=== PATIENT | male | born 1945 | race Caucasian/White ===

== ENCOUNTER 2024-09-16 12:12 | Inpatient (IN) | payer MEDICARE, OTHER, SELFPAY ==
[2024-09-16] VITALS (24 sets, daily range): BP systolic 111–163; BP diastolic 59–77; PULSE 69–98; RESP 16–20; TEMP 36.1–37.6; O2SAT 91–99; BMI 28.7; BMI 29.7
--- NOTE | 2024-09-16 | PATH_ITS ---
[facility] Accession Number: [id number] No. of containers..01 Tissue . 01 Material submitted: . colon - RIGHT COLON . 01 Diagnosis: COLON, RIGHT COLECTOMY: Invasive adenocarcinoma, moderately differentiated, involving the appendix. See case summary below. . CASE SUMMARY Standard: AJCC-UICC 9 . SPECIMEN Procedure: Right colectomy. . TUMOR Tumor site: Appendix, not otherwise specified. Base of appendix involvement is present. Histologic type: Adenocarcinoma. Histologic grade: G2, moderately differentiated. Tumor size: Greatest dimension: 7.8 cm. Tumor deposits: Present. Number of deposits: At least 3. Tumor extent: Tumor invades through muscularis propria and to subserosa and mesoappendix but does not extend to serosal surface. Lymphatic and/or vascular invasion: Not identified. Perineural invasion: Not identified. . MARGINS Margin status for invasive carcinoma: All margins negative for invasive carcinoma. Distance from invasive carcinoma to closest mesenteric margin: 0.6 cm. . REGIONAL LYMPH NODES Regional lymph node status Number of lymph nodes with tumor: 1. Number of lymph nodes examined: 15. . pTNM CLASSIFICATION (AJCC 9TH VERSION): pT3, pN1c . ADDITIONAL FINDINGS Appendicitis with serositis and perforation. . SPECIAL STUDIES IMMUNOHISTOCHEMISTRY TESTING FOR MISMATCH REPAIR PROTEINS: . MLH1: Intact nuclear expression. MSH2: Intact nuclear expression. MSH6: Intact nuclear expression. PMS2: Intact nuclear expression. Background nonneoplastic tissue/internal control with intact nuclear expression. . INTERPRETATION: No loss of nuclear expression of MMR proteins: low probability of microsatellite instability-high (MSI-H)* . * There are exceptions to the above IHC interpretations. These results should not be considered in isolation, and clinical correlation with genetic counseling is recommended to assess the need for germline testing. . * This test was developed and the performance characteristics were validated by [employer]. It has not been cleared or approved by the U.S. Food and Drug Administration. . COMMENTS Tumor is present at the appendix perforation as noted by microscopic examination. [facility] 09/27/2024 1030 Local . 01 Electronically signed: . Donald Edwards MD, Pathologist NPI- [id number] . 01 Gross description: . Received in formalin with two identifiers and right colon, is a portion of right colon with attached ileum (4.1 cm in length by 2.9 cm in diameter) with cecum and right colon (11.4 cm in length by 3.5 cm in diameter) with a dilated appendix with (6.2 cm in length and up to 2.7 cm in diameter), and a large defect transecting the appendix to reveal a grossly dilated, ragged lumen with no distinct mucoid material immediately identified. The distal portion of the appendix is attached by fat and soft tissue. The ileal margin is inked blue, the colon margin is inked black, the mesenteric margin is inked green, and the edges of the defect are inked orange. The serosa is buckley and slightly roughened with a large amount of adherent material consistent with exudate attached to the appendix. The lumen contains brown semi-solid fecal material. A portion of sessile ulcerated lesion (1.9 x 1.4 cm) is identified at the appendiceal orifice, extending approximately 0.8 cm into the cecum and is located at the orange-inked area of defect. The remaining appendiceal mucosa is diffusely ragged and friable, presumably a continuation of the aforementioned sessile lesion involving the entire appendix. The lesion extends 7.8 cm into the appendix leaving 1.6 cm at the distal tip that is grossly uninvolved. The maximum dimension of the tumor is 7.8 cm. The lesion extends through the wall and into the adjacent mesoappendix. No mucus is definitively identified. The lesion in the appendix has the mesenteric margin as the closest margin at 0.6 cm, and the remaining margins are widely free. The remaining mucosa is buckley and velvety with normal-appearing folds and no additional lesions identified. The aldana average 0.3 cm thick with no diveritcular identified. Palpation reveals 16 buckley lymmph node candidates ranging from 0.2 to 1.1 cm in greatest dimension. . Engagement Specialist sections are submitted as follows: A1: Engagement Specialist ileal and colon margins en face. A2-A3: Nearest green-inked mesenteric margin to mass. A4: Mass to normal cecum and orange-inked defect with two lymph node candidates. A5-A6: Additional lesion to orange-inked defect. A7: Section of appendix with mass and deepest extension. A8: Ileocecal valve. A9: Possible vascular invasiion. A10: Uninvolved colon. A11: Normal ileum. A12: One half of uninvolved bisected distal tip of appendix and uninvolved cross-section. A13: Section of fat adjacent to appendix with possible mat of lymph nodes. A14: Single intact lymph node candidate. A15: Single bisected lymph node candidate. A16: Single bisected lymph node candidate. A17: Five intact lymph node candidates. A18: Four intact lymph node candidates. A19: Two intact lymph node candidates. ([id number]) /CHASIDY 09/27/2024 0511 Local . 01 Microscopic: . A select panel of immunostains are performed to further evaluate the tumor. The tumor cells are focally positive for CDX2, positive for villin, and are negative for chromogranin. These findings support the diagnosis of adenocarcinoma and provide no evidence of neuroendocrine differentiation. An elastic stain is performed on block A4 to evaluate for possible vascular invasion, and none is identified. All controls stain as expected. . . * This test was developed and the performance characteristics were validated by [facility]. It has not been cleared or approved by the U.S. Food and Drug Administration. . 01 Pathologist provided ICD-10: C18.1 . 01 CPT . 058997, L99308, I77235, 147967 Specimen Comment: A courtesy copy of this report has been sent to [phone] Performed at: [address] [address], [place], [place] [id number] MD Donald Edwards MD Phone: [phone]
--- NOTE | 2024-09-16 13:23 | PC.NURSE ---
Patient here in department for nausea/vomiting that started 36 hours, patient has had one episode of bile emesis. Patient currently has 2/10 abdominal pain and is not currently nauseous, patient is currently drinking water
--- NOTE | 2024-09-16 14:08 | ED.NAVMDI ---
HPI - Nausea/Vomiting/Diarrhea General Chief complaint: Nausea/Vomiting/Diarrhea Stated complaint: abd px, vomiting green bile Time Seen by Provider: 09/16/24 13:01 Source: patient Mode of arrival: Ambulatory History of Present Illness HPI Narrative: 78-year-old male complains of central abdominal pain since 8:00 p.m. last night, nauseated this morning, no longer nauseated, last bowel movement yesterday, no black or red stools, no loose stools. No injury trauma new activities. He had concerns that he might heavy having appendicitis. He has had prior umbilical surgery many years ago, no other abdominopelvic surgeries. He has not sure if he is passing gas. 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 HEAD: Atraumatic. Normocephalic. EYES: Pupils equal round and reactive. Extraocular motions intact. No scleral icterus. No injection or drainage. ENT: Nose without bleeding, purulent drainage. Throat without erythema, tonsillar hypertrophy or exudate. Airway patent. NECK: Trachea midline. Non tender CARDIOVASCULAR: Regular rate and rhythm without murmurs, gallops, or rubs. RESPIRATORY: Clear to auscultation. Breath sounds equal bilaterally. No wheezes, rales, or rhonchi. GASTROINTESTINAL: Abdomen soft, non-tender, nondistended. No appreciable umbilical hernia, no tenderness periumbilical or otherwise on abdomen, nondistended, unremarkable bowel tones EXTREMITIES: No edema or joint tenderness. BACK: Nontender without deformity or crepitance. No flank tenderness. NEURO: AOx3. Motor functions grossly nonfocal SKIN: No rash or erythema of visible areas Initial Vital Signs Initial Vital Signs: Vital Signs Temperature 98.8 F 09/16/24 12:17 Pulse Rate 98 H 09/16/24 12:17 Respiratory Rate 20 09/16/24 12:17 Blood Pressure 140/67 09/16/24 12:17 Pulse Oximetry 94 09/16/24 12:17 Oxygen Delivery Method Room Air 09/16/24 12:17 Course Orders Ordered: ED Orders 09/16/24 12:48 Complete Blood Count AUTO DIFF Stat Comprehensive Metabolic Panel Stat Lipase Stat Prothrombin Time INR Stat 09/16/24 14:47 Ictotest Urine Stat Urine Culture Stat Urine Microscopic Stat 09/16/24 15:19 CT abdomen pelvis w con Stat 09/16/24 17:18 EKG-12 Lead Stat 09/16/24 17:29 Gram Stain Stat 09/16/24 18:00 Blood Culture Stat 09/16/24 18:22 Lactate (Lactic Acid) Stat Fentanyl (Fentanyl 100 Mcg/2 Ml Inj) 0 mcg IV Q5MIN PRN PRN Reason: Pain, Severe (7-10) Hydromorphone HCl (Hydromorphone 1 Mg Inj) 0 mg IV Q5MIN PRN PRN Reason: Pain, Mild (1-3) Hydroxyzine HCl (Hydroxyzine 50 Mg/Ml Inj) 25 mg IM NOW PRN PRN Reason: Pain, Mild (1-3) Lactated Ringer's (Lactated Ringers) 1,000 mls @ 42 mls/hr IV CONT JUDAH Last Admin: 09/16/24 19:03 Dose: 42 mls/hr Documented By: TRISTEN Acetaminophen (Ofirmev) 1,000 mg in 100 mls @ 400 mls/hr IV NOW ONE Stop: 09/16/24 20:29 Last Admin: 09/16/24 20:15 Dose: 400 mls/hr Documented By: MOIRA Cefazolin Sodium/Dextrose (Ancef) 100 mls @ 200 mls/hr IV NOW ONE Stop: 09/16/24 20:45 Last Admin: 09/16/24 19:44 Dose: 200 mls/hr Documented By: MOIRA Ondansetron HCl (Ondansetron 4 Mg/2 Ml Inj) 4 mg IV NOW PRN PRN Reason: Nausea And Vomiting Oxycodone HCl (Oxycodone Ir 5 Mg Tablet) 5 mg PO PACUNOW PRN PRN Reason: Mild or moderate pain Discontinued Medications Sodium Chloride (Normal Saline 0.9%) 1,000 mls @ 1,000 mls/hr IV BOLUS ONE Stop: 09/16/24 17:44 Last Infusion: 09/16/24 18:29 Dose: Infused Documented By: Admin: 09/16/24 17:21 Dose: 1,000 mls/hr Documented By: BRITTANIE Piperacillin Sod/Tazobactam (Sod 4.5 gm/ Sodium Chloride) 100 mls @ 200 mls/hr IV NOW ONE Stop: 09/16/24 16:46 Last Infusion: 09/16/24 18:59 Dose: Infused Documented By: Infusion: 09/16/24 18:29 Dose: 0 mls/hr Documented By: Admin: 09/16/24 18:18 Dose: 200 mls/hr Documented By: YUSRA Vital Signs Vital signs: Vital Signs - 8 hr 09/16/24 13:05 09/16/24 13:30 09/16/24 13:30 Pulse Rate 87 85 Blood Pressure 148/65 H Pulse Oximetry 94 92 Oxygen Delivery Method 09/16/24 14:00 09/16/24 14:00 09/16/24 14:30 Pulse Rate 86 81 Blood Pressure 143/77 H Pulse Oximetry 93 94 Oxygen Delivery Method Room Air 09/16/24 14:30 09/16/24 15:00 09/16/24 15:00 Pulse Rate 83 Blood Pressure 162/76 H 144/64 H Pulse Oximetry 93 Oxygen Delivery Method 09/16/24 15:30 09/16/24 15:30 09/16/24 16:00 Pulse Rate 86 84 Blood Pressure 146/69 H Pulse Oximetry 97 96 Oxygen Delivery Method Room Air 09/16/24 16:00 09/16/24 16:27 09/16/24 16:27 Pulse Rate 76 Blood Pressure 163/77 H 144/70 H Pulse Oximetry Oxygen Delivery Method 09/16/24 16:30 09/16/24 16:30 09/16/24 17:00 Pulse Rate 83 84 Blood Pressure 152/73 H Pulse Oximetry Oxygen Delivery Method 09/16/24 17:00 09/16/24 17:30 09/16/24 18:00 Pulse Rate 81 83 Blood Pressure 147/66 H Pulse Oximetry 97 97 Oxygen Delivery Method MDM - Nausea/Vomiting/Diarrhea Lab Data Attestation: I reviewed the patient's lab results. Lab results narrative: White blood cell count 38020, hemoglobin 12.6, platelets 023897, sodium 126 with glucose 208, serum CO2 23, chloride 93, potassium 4.0, BUN 15 with creatinine 0.75. Liver functions normal, lipase normal. 09/16/24 12:48 09/16/24 12:48 Labs: Lab Results 09/16/24 09/16/24 Range/Units 12:48 14:47 WBC 20.7 H (4.5-11.0) X10^3/uL RBC 4.09 L (4.5-5.9) X10^6/uL Hgb 12.6 L (13.5-17.5) g/dL Hct 37.5 L (41-53) % MCV 91.6 (80-100) fL MCH 30.8 (26-34) PG MCHC 33.6 (30-36) % RDW 13.4 (11.6-14.8) % Plt Count 220 (150-400) X10^3/uL Neut % (Auto) 86.9 H (50-75) % Lymph % (Auto) 3.1 L (25-40) % [place] % (Auto) 9.8 (3-14) % Eos % (Auto) 0.0 L (2-4) % Baso % (Auto) 0.2 (0-2) % Neut # (Auto) 91226 H (1277-2218) /uL Lymph # (Auto) 700 L (1523-9516) /uL [place] # (Auto) 2000 H (0-900) /uL Eos # (Auto) 0 (0-450) /uL Baso # (Auto) 0 (0-100) /uL PT 14.0 H (9.4-12.5) SECONDS INR 1.2 (0.9-1.3) Sodium 126 L (137-145) mmol/L Potassium 4.0 (3.4-5.1) mmol/L Chloride 93 L (98-107) mmol/L Carbon Dioxide 23 (22-32) mmol/L BUN 15 (9-20) mg/dL Creatinine 0.75 (0.66-1.25) mg/dL Estimated GFR > 60 (>60) mL/min BUN/Creatinine Ratio 20.0 (6-22) Glucose 208 H (80-110) mg/dL Calcium 9.2 (8.4-10.2) mg/dL Total Bilirubin 1.2 (0.2-1.3) mg/dL AST 37 (17-59) IU/L ALT 24 (<50) IU/L Alkaline Phosphatase 88 (38-126) U/L Total Protein 7.0 (6.3-8.2) g/dL Albumin 4.3 (3.5-5.0) g/dL Globulin 2.7 (1.7-4.1) g/dL Albumin/Globulin Ratio 1.6 (1.0-2.8) Lipase < 10 L (23-300) U/L Ur Bilirubin Confirm Negative (Negative) Urine RBC 0-1/hpf (0-5/HPF) Urine WBC 5-10/hpf H (0-5/HPF) Ur Squamous Epith Cells 0-1 /hpf (0-5/HPF) Urine Bacteria Moderate (10-30) H (None) Urine Mucus 3+ H (Negative) Vol Urine Centrifuged 10ml (spun) Urine Dip Bedside Urine Glucose Negative Bedside Urine Bilirubin + 1 Bedside Urine Ketone +/- 5 Urine Specific [place] 1.025 Bedside Urine Occult Blood ++ Bedside Urine pH 6.0 Bedside Urine Protein +++ 300 Bedside Urine Urobilinogen +/- 1mg Bedside Urine Nitrite - Negative Bedside Urine Leukocytes + [address] scan - abdomen/pelvis: Radiologist's Impression: [address] [address] [address] Scan Report Signed Patient: Evan Plummer MR#: [id number] : 1945 Acct:[id number] Age/Sex: 78 / M Date of Service: 09/16/24 Loc: ED Accession Number: [id number] Procedure: CT abdomen pelvis w con Ordering Provider: Yobany Bradley MD PROCEDURE: CT ABDOMEN PELVIS W CON INDICATIONS: Abdominal pain TECHNIQUE: After the administration of intravenous contrast, axial sections acquired from the lung bases to the pubic symphysis. Coronal and sagittal reformats were performed. For radiation dose reduction, the following was used: automated exposure control, adjustment of mA and/or kV according to patient size. COMPARISON: None. FINDINGS: Image quality: Diagnostic. Lower Chest: No significant findings. ABDOMEN: Liver: No solid mass. Gallbladder: No radiopaque gallstones or wall thickening. Biliary ducts: No biliary dilation. Pancreas: No ductal dilation. Spleen: Size is within normal limits. Adrenal Glands: No adrenal nodules. Kidneys and Ureters: No hydronephrosis. No solid mass. No complex renal cystic lesion which requires follow up. Stomach and Bowel: Suspect bowel perforation in the right lower quadrant. Inflammatory change in the surrounding fat and in the surrounding loops of bowel. Probable ileus pattern. Peritoneum: There is a focal perforation in the right lower quadrant with early abscess formation, possibly involving feculent material. There is minimal air present in the subjacent mesenteric fat. The area of likely perforation with feculent abscess formation measures 4.2 x 3.6 cm on coronal image 47 of series 3. On axial image 107 of series 2 it measures 2.4 x 2.8 cm. There is inflammatory change in the adjacent fat. There is inflammatory change in the adjacent bowel. Small free pelvic fluid collection. Ventral Wall: No significant ventral hernia. Abdominal Nodes: No retroperitoneal or mesenteric adenopathy by size criteria. Vessels: Aorta and inferior vena cava are normal in size. PELVIS: Pelvic Organs: Unremarkable. Bladder: No bladder wall thickening, accounting for underdistention. Pelvic Nodes: No enlarged lymph nodes. Miscellaneous: No inguinal hernias are seen. Bones: No aggressive osseous abnormality. IMPRESSION: Likely bowel perforation in the right lower quadrant with possible early abscess formation containing feculent material and minimal free air in the adjacent mesenteric fat. There is inflammatory change in the subjacent bowel and a probable ileus pattern. There is also a small amount of free pelvic fluid. Comment: Findings were discussed with Dr. Bradley on 09/16/2024 at 1644 hours Dictated by: Jc Juan M.D. on 09/16/2024 at 16:35 Approved by: Jc Juan M.D. on 09/16/2024 at 16:46 ECG Data Attestation: I personally reviewed and interpreted this ECG as follows: Interpretation: Normal sinus rhythm with rate 84, no obvious ST segment elevation or depression changes. AK 188, QRS 90, QTC 415. MDM Narrative Medical decision making narrative: 78-year-old male with periumbilical abdominal pain since 8:00 p.m. last night, patient concerned about possible appendicitis, prior umbilical hernia repair. Afebrile, sirs screen negative. No significant tenderness on abdominal exam. DDx consider colitis, diverticulitis, pancreatitis, gastritis, choledocholithiasis, hernia, bowel obstruction, aortic aneurysm/dissection, atypical for appendicitis, UTI, other. Labs pending. Patient declines pain medication when offered. White blood cell count 90935, hemoglobin adequate, lactate added. Urinalysis pending. GFR favorable, CT abdomen and pelvis ordered. CT abdomen and pelvis with IV contrast. Impressions: ?Likely bowel perforation in the right lower quadrant with possible early abscess formation containing feculent material and minimal free air in the adjacent mesenteric fat. There is inflammatory change in the sub adjacent bowel and a probable ileus pattern. There is also a small amount of free pelvic fluid.? See tele radiology report. In text portion peritoneal abdominal there is mention of the perforation feculent abscess formation measuring 4.2 x 3.6 cm. Results discussed with patient, we will start antibiotics, we will consult surgery. IV Zosyn antibiotic initiated, NKDA noted. Keep NPO. Urinalysis has imported, suspicious for infection, urine culture requested per protocol, could be inflammatory changes from adjacent inflammatory process, should be covered by IV Zosyn. 1750, surgery Dr. Feldman in the room consulting with patient and family. IV Zosyn has been given. Keep NPO. Dr Feldman taking patient to OR, admit to his service Critical Care Time Critical Care Time Critical Care Time: Yes Total Critical Care Time: 35 Attestation: The high probability of a clinically significant, sudden or life threatening deterioration of the [abdominal pelvic, GI] system(s) required my full and direct attention, intervention and personal management. The aggregate critical care time was [35] minutes. This time is in addition to time spent performing reported procedures but includes the following: [x] Data Review and interpretation [x] Patient assessment and monitoring of vital signs [x] Documentation [x] Medication orders and management Discharge Plan Departure Patient Disposition: Admitted to Surgery Clinical Impression: Abdominal pain, Abdominal abscess, Perforated abdominal viscus Admit Date/Time: 09/16/24 18:11 Admit Provider: Jason Feldman
[2024-09-16 14:12] LABS: Add Manual Diff / Slide Review NO; Basophils Absolute Auto 0 /uL (0-100); Basophils Percent Auto 0.2 % (0-2); Eosinophils Absolute Auto 0 /uL (0-450); Hematocrit 37.5 % (41-53); Hemoglobin 12.6 g/dL (13.5-17.5); Lymphocytes Absolute Auto 700 /uL (1100-4500); Lymphocytes Percent Auto 3.1 % (25-40); Mean Corpuscular HGB Conc 33.6 % (30-36); Mean Corpuscular Hemoglobin 30.8 PG (26-34); Mean Corpuscular Volume 91.6 fL (80-100); Monocytes Absolute Auto 2000 /uL (0-900); Monocytes Percent Auto 9.8 % (3-14); Neutrophils Absolute Auto 18000 /uL (1500-7000); Neutrophils Percent Auto 86.9 % (50-75); Platelet Count 220 X10^3/uL (150-400); Red Blood Cell Count 4.09 X10^6/uL (4.5-5.9); Red Cell Distribution Width 13.4 % (11.6-14.8); White Blood Cell Count 20.7 X10^3/uL (4.5-11.0)
[2024-09-16 14:18] LABS: Alanine Aminotransferase 24 IU/L (<50); Albumin 4.3 g/dL (3.5-5.0); Albumin Globulin Ratio 1.6 (1.0-2.8); Alkaline Phosphatase 88 U/L (38-126); Aspartate Aminotransferase 37 IU/L (17-59); Bilirubin Total 1.2 mg/dL (0.2-1.3); Blood Urea Nitrogen 15 mg/dL (9-20); Calcium 9.2 mg/dL (8.4-10.2); Carbon Dioxide 23 mmol/L (22-32); Chloride 93 mmol/L (98-107); Estimated Glomerular Filt Rate > 60 mL/min (>60); Globulin 2.7 g/dL (1.7-4.1); Glucose 208 mg/dL (80-110); HEMOLYSIS < 15 (0-50); Lipase < 10 U/L (23-300); Sodium 126 mmol/L (137-145)
[2024-09-16 14:51] LABS: Ictotest Urine Negative (Negative)
--- NOTE | 2024-09-16 15:19 | DI.CT.S_ITS ---
PROCEDURE: CT ABDOMEN PELVIS W CON INDICATIONS: Abdominal pain TECHNIQUE: After the administration of intravenous contrast, axial sections acquired from the lung bases to the pubic symphysis. Coronal and sagittal reformats were performed. For radiation dose reduction, the following was used: automated exposure control, adjustment of mA and/or kV according to patient size. COMPARISON: None. FINDINGS: Image quality: Diagnostic. Lower Chest: No significant findings. ABDOMEN: Liver: No solid mass. Gallbladder: No radiopaque gallstones or wall thickening. Biliary ducts: No biliary dilation. Pancreas: No ductal dilation. Spleen: Size is within normal limits. Adrenal Glands: No adrenal nodules. Kidneys and Ureters: No hydronephrosis. No solid mass. No complex renal cystic lesion which requires follow up. Stomach and Bowel: Suspect bowel perforation in the right lower quadrant. Inflammatory change in the surrounding fat and in the surrounding loops of bowel. Probable ileus pattern. Peritoneum: There is a focal perforation in the right lower quadrant with early abscess formation, possibly involving feculent material. There is minimal air present in the subjacent mesenteric fat. The area of likely perforation with feculent abscess formation measures 4.2 x 3.6 cm on coronal image 47 of series 3. On axial image 107 of series 2 it measures 2.4 x 2.8 cm. There is inflammatory change in the adjacent fat. There is inflammatory change in the adjacent bowel. Small free pelvic fluid collection. Ventral Wall: No significant ventral hernia. Abdominal Nodes: No retroperitoneal or mesenteric adenopathy by size criteria. Vessels: Aorta and inferior vena cava are normal in size. PELVIS: Pelvic Organs: Unremarkable. Bladder: No bladder wall thickening, accounting for underdistention. Pelvic Nodes: No enlarged lymph nodes. Miscellaneous: No inguinal hernias are seen. Bones: No aggressive osseous abnormality. IMPRESSION: Likely bowel perforation in the right lower quadrant with possible early abscess formation containing feculent material and minimal free air in the adjacent mesenteric fat. There is inflammatory change in the subjacent bowel and a probable ileus pattern. There is also a small amount of free pelvic fluid. Comment: Findings were discussed with Dr. Bradley on 09/16/2024 at 1644 hours Dictated by: Jc Juan M.D. on 09/16/2024 at 16:35 Approved by: Jc Juan M.D. on 09/16/2024 at 16:46
[2024-09-16 15:42] LABS: Bacteria Urine Moderate (10-30); Mucus Urine 3+ (Negative); RBC Urine 0-1/HPF (0-5/HPF); Squamous Epithelial Cell Urine 0-1 /HPF (0-5/HPF); Urine Volume 10mL (spun); WBC Urine 5-10/HPF (0-5/HPF)
--- NOTE | 2024-09-16 17:14 | EKG_ITS ---
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
--- NOTE | 2024-09-16 17:16 | EKG_ITS ---
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
[2024-09-16] MEDS: SODIUM CHLORIDE 0.9% 1,000 ML 1000 ML IV (17:21)
[2024-09-16 18:18] LABS: INR 1.2 (0.9-1.3)
[2024-09-16] MEDS: PIPERACILLIN/TAZO 4.5 GM in SODIUM CHLORIDE 0.9% 100 ML IV (18:18)
--- NOTE | 2024-09-16 18:18 | P.HP_ITS ---
History of Present Illness History of Present Illness Date Patient Seen: 09/16/24 Time Patient Seen: 18:19 Chief complaint: abd px, vomiting green bile Narrative: Evan Plummer is a 78-year-old man with history of hypertension who presents to the emergency department at [facility] with acute onset of abdominal pain. Pain began 36 hours ago primarily central and right lower quadrant. He has associated nausea and emesis. Previous abdominal surgery includes umbilical hernia repair. On arrival WBC 21 with left shift sodium 126 chloride [address] abdomen pelvis personally reviewed demonstrates an abscess in the right lower quadrant with phlegmon and perforated hollow viscus. No mention of appendix on CT read and I can not personally identify at either. He has had a colonoscopy in the past which has been normal sometime within the last several years. [facility] Medical History (Updated 09/16/24 @ 18:29 by Jason Feldman MD) HTN (hypertension) Surgical History (Updated 09/16/24 @ 18:25 by Jason Feldman MD) H/O umbilical hernia repair Social History (Updated 09/16/24 @ 18:25 by Jason Feldman MD) Smoking Status: Former smoker additional social history: [employer]/first [employer] Meds Home Medications and Allergies Allergies Allergy/AdvReac Type Severity Reaction Status Date / Time No Known Drug Allergies Allergy Verified 09/16/24 16:03 Exam Vital Signs (past 8 hours): - 09/16/24 12:17 09/16/24 13:05 09/16/24 13:30 Temperature 98.8 F Pulse Rate 98 H 87 85 Respiratory Rate 20 Blood Pressure 140/67 Pulse Oximetry 94 94 92 Oxygen Delivery Method Room Air 09/16/24 13:30 09/16/24 14:00 09/16/24 14:00 Temperature Pulse Rate 86 Respiratory Rate Blood Pressure 148/65 H 143/77 H Pulse Oximetry 93 Oxygen Delivery Method Room Air 09/16/24 14:30 09/16/24 14:30 09/16/24 15:00 Temperature Pulse Rate 81 Respiratory Rate Blood Pressure 162/76 H 144/64 H Pulse Oximetry 94 Oxygen Delivery Method 09/16/24 15:00 09/16/24 15:30 09/16/24 15:30 Temperature Pulse Rate 83 86 Respiratory Rate Blood Pressure 146/69 H Pulse Oximetry 93 97 Oxygen Delivery Method 09/16/24 16:00 09/16/24 16:00 09/16/24 16:27 Temperature Pulse Rate 84 76 Respiratory Rate Blood Pressure 163/77 H Pulse Oximetry 96 Oxygen Delivery Method Room Air 09/16/24 16:27 09/16/24 16:30 09/16/24 16:30 Temperature Pulse Rate 83 Respiratory Rate Blood Pressure 144/70 H 152/73 H Pulse Oximetry Oxygen Delivery Method 09/16/24 17:00 09/16/24 17:00 09/16/24 17:30 Temperature Pulse Rate 84 81 Respiratory Rate Blood Pressure 147/66 H Pulse Oximetry 97 Oxygen Delivery Method Oxygen Delivery Method Room Air Narrative Exam Narrative: General adult man alert oriented Chest nonlabored respiration Abdomen focal peritonitis right lower quadrant Extremities warm well perfused Objective Labs 09/16/24 12:48 09/16/24 12:48 Labs: Laboratory Results - last 24 hr 09/16/24 09/16/24 12:48 14:47 WBC 20.7 H RBC 4.09 L Hgb 12.6 L Hct 37.5 L MCV 91.6 MCH 30.8 MCHC 33.6 RDW 13.4 Plt Count 220 Neut % (Auto) 86.9 H Lymph % (Auto) 3.1 L [place] % (Auto) 9.8 Eos % (Auto) 0.0 L Baso % (Auto) 0.2 Neut # (Auto) 45877 H Lymph # (Auto) 700 L [place] # (Auto) 2000 H Eos # (Auto) 0 Baso # (Auto) 0 Sodium 126 L Potassium 4.0 Chloride 93 L Carbon Dioxide 23 BUN 15 Creatinine 0.75 Estimated GFR > 60 BUN/Creatinine Ratio 20.0 Glucose 208 H Calcium 9.2 Total Bilirubin 1.2 AST 37 ALT 24 Alkaline Phosphatase 88 Total Protein 7.0 Albumin 4.3 Globulin 2.7 Albumin/Globulin Ratio 1.6 Lipase < 10 L Ur Bilirubin Confirm Negative Urine RBC 0-1/hpf Urine WBC 5-10/hpf H Ur Squamous Epith Cells 0-1 /hpf Urine Bacteria Moderate (10-30) H Urine Mucus 3+ H Vol Urine Centrifuged 10ml (spun) Assessment & Plan Assessment and plan (1) Perforation bowel: Problem details: 78-year-old man who presents with a perforated bowel likely right colon. Unclear if appendicitis versus diverticular disease versus neoplasm versus ischemia. We discussed management options including management with antibiotic therapy percutaneous drainage, exploratory surgery. We discussed the risks and benefits of each and following discussion his preference is to proceed with surgery. Overview of an exploratory laparotomy, possible bowel resection was described. We discussed operative risks including hemorrhage, infection, anastomotic leak, damage to surrounding structures, chronic wound, and rare but serious events such as myocardial infarction, stroke and . Following discussion questions have been answered and he provides his informed consent to proceed. Status: Acute Time-Based Coding :: [TOTAL MINUTES] spent with patient and on the chart (including review of chart, obtaining history, exam, reviewing outside data, placing orders, documenting exam and treatment plan, and counseling patient) on [DATE].
[2024-09-16 18:42] LABS: Lactate (Lactic Acid) 1.8 mmol/L (0.7-2.1)
[2024-09-16] MEDS: LACTATED RINGERS 1,000 ML 42 ML IV (19:03)
[2024-09-16] MEDS: CEFAZOLIN 2 GM/100 ML PREMIX 100 ML IV (19:44)
--- NOTE | 2024-09-16 20:04 | SUR.OPER ---
Supine on padded OR bed, head on pillow, arms secured on padded arm boards at <90 degrees abduction, legs uncrossed, safety belt at thigh, tape over blanket over lower legs. 2 pillows under legs
[2024-09-16] MEDS: ACETAMINOPHEN IV 1,000 MG/100 ML VIAL 400 MG IV (20:15)
[2024-09-16] MEDS: BUPIVACAINE 0.25% (PF) VIAL 30 ML INJ (20:32)
[2024-09-16] MEDS: BUPIVACAINE LIPOSOME 266 MG/20 ML VIAL INJ (20:45)
--- NOTE | 2024-09-16 21:46 | PM.OP.1 ---
Operative Date/Time/Diagnoses Date of procedure: 09/16/24 Time of procedure: 21:46 Pre-op diagnosis: Perforated bowel Post-op diagnosis: other (Appendiceal mass, perforated bowel, purulent peritonitis) Procedure & Clinicians Procedure: Exploratory laparotomy Right hemicolectomy Same procedure as scheduled: Yes Indications: 78-year-old man presents to the emergency room with acute onset of abdominal pain. CT abdomen pelvis demonstrated a perforated bowel with an associated abscess in the right lower quadrant, appendix not visualized. We discussed options including antibiotic therapy plus or minus drainage versus surgery in his preference is to proceed with an operation. 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 No hepatic metastasis Specimen(s): other (Right colon) Estimated Blood Loss (mL): 50 Procedure in detail: Patient was brought to the operating room placed supine on the table. Bilateral lower extremity compression devices applied. General anesthesia induced he was intubated with an endotracheal tube. Cordoba catheter sterilely placed. He was then prepped and draped in sterile fashion and time-out was performed. He received 3.375 g of Zosyn prior to skin incision. Lower midline laparotomy was made in the abdomen was entered. We encountered purulent peritonitis throughout the abdomen. Self-retaining retractor was placed. 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 The liver was without signs of metastasis. The right colon was mobilized medially by incising along the white line of [place] to the level of the hepatic flexure. The sweep of the duodenal was identified and kept posterior out of harm's way. The right colon was then divided at the hepatic flexure after a window within the mesentery was made and then the bowel was divided using the MICHELLE stapler. The terminal ileum was divided in the similar fashion window within the mesentery was made in the small bowel was divided using the Endo-MICHELLE stapler. The attachments to the appendix and its associated abscess were divided/debrided. We divided the mesentery to the right colon using the LigaSure. A search for the right ureter was made but it was not identified secondary to the extensive inflammatory changes. We fashioned a [id number] functional end to end anastomosis between the terminal ileum and the transverse colon. A crotch stitch was placed and then a enterotomy and a colotomy were made in each limb which were then joined together using a 3rd firing of the MICHELLE stapler. The anastomosis was widely patent and hemostatic. The common opening was then closed in a running manner using 3-0 PDS. The suture line was imbricated using silk suture. The anastomosis was tested in content milk cross fit easily and there was no evidence of leak. The anastomosis was tension-free and well perfused. The abdomen was copiously lavaged with sterile saline and it returned clear. The bowel was returned to the abdomen and then the fascia was closed in a running fashion using PDS suture. Subcutaneous tissue was irrigated and then reapproximated using Vicryl suture and the skin closed with georgie. A total of 30 mL of 0.25% bupivacaine with 20 mL of Exparel were used for local anesthetic. A tap block by the anesthesia service was performed following completion of the operation. Sponge and instrument count was correct x2. Patient emerged from anesthesia and was transferred to recovery in stable condition. The patient's was updated as to his condition and the nature of the operation. Complications: none Post-operative Condition: stable Disposition: Acute Care
[2024-09-16 22:37] LABS: Acinetobacter calcoa-baumannii Not Detected (Not Detect); Bacteroides fragilis Not Detected (Not Detect); Candida albicans Not Detected (Not Detect); Candida auris Not Detected (Not Detect); Candida glabrata Not Detected (Not Detect); Candida krusei Not Detected (Not Detect); Candida parapsilosis Not Detected (Not Detect); Candida tropicalis Not Detected (Not Detect); Cryptococcus neoformans/gatti Not Detected (Not Detect); Enterobacter cloacae complex Not Detected (Not Detect); Enterobacterales Not Detected (Not Detect); Enterococcus faecalis Not Detected (Not Detect); Enterococcus faecium Not Detected (Not Detect); Haemophilus influenzae Not Detected (Not Detect); Klebsiella aerogenes Not Detected (Not Detect); Listeria monocytogenes Not Detected (Not Detect); Neisseria meningitidis Not Detected (Not Detect); Proteus species Not Detected (Not Detect); Pseudomonas aeruginosa Not Detected (Not Detect); Salmonella species Not Detected (Not Detect); Serratia marcescens Not Detected (Not Detect); Staphylococcus epidermidis Not Detected (Not Detect); Staphylococcus lugdunensis Not Detected (Not Detect); Staphylococcus species Not Detected (Not Detect); Stenotrophomonas maltophilia Not Detected (Not Detect); Streptococcus agalactiae (Gr B Not Detected (Not Detect); Streptococcus pneumonia Not Detected (Not Detect); Streptococcus pyogenes (Gr A) Not Detected (Not Detect); Streptococcus species Not Detected (Not Detect)
[2024-09-16] MEDS: SODIUM CHLORIDE 0.9% 1,000 ML 100 ML IV (22:37)
[2024-09-16] MEDS: PIPERACILLIN/TAZO 3.375 GM in SODIUM CHLORIDE 0.9% 100 ML IV (22:38)
[2024-09-17] VITALS (11 sets, daily range): BP systolic 102–143; BP diastolic 56–81; PULSE 71–81; RESP 16–18; TEMP 36.1–36.7; O2SAT 91–97
--- NOTE | 2024-09-17 01:01 | PC.ADMIT ---
[address] Admission Note: Patient back to AC unit from PACU at 22:15. Alert and oriented x 4, cooperative. Cordoba placed prior to AC admit, for surgical procedure. NS @ 100/hr, Zosyn per order. Oriented to room and call light, call light within reach. Spouse present at bedside. The patient,Evan Plummer,78 y/o, was given written information regarding hospital policies, unit procedures and contact persons. Patient's smoking status: Former smoker. Vital Signs - 8 hr 09/16/24 17:30 09/16/24 18:00 09/16/24 18:40 Temperature Pulse Rate 81 83 Respiratory Rate Blood Pressure Pulse Oximetry 97 97 Oxygen Delivery Method Room Air Oxygen Flow Rate 09/16/24 19:00 09/16/24 21:31 09/16/24 21:36 Temperature 99.1 F 99.6 F Pulse Rate 91 H 81 76 Respiratory Rate 20 16 20 Blood Pressure 154/76 H 111/60 111/60 Pulse Oximetry 97 97 99 Oxygen Delivery Method Room Air Simple Mask Simple Mask Oxygen Flow Rate 6 09/16/24 21:41 09/16/24 21:42 09/16/24 21:46 Temperature Pulse Rate 72 70 Respiratory Rate 19 16 Blood Pressure 112/61 118/61 Pulse Oximetry 99 91 93 Oxygen Delivery Method Simple Mask Room Air Room Air Oxygen Flow Rate 6 09/16/24 21:51 09/16/24 21:56 09/16/24 22:15 Temperature 97.1 F L Pulse Rate 72 73 70 Respiratory Rate 19 18 18 Blood Pressure 117/68 125/61 122/64 Pulse Oximetry 93 93 91 Oxygen Delivery Method Room Air Room Air Oxygen Flow Rate 0 09/16/24 22:45 09/16/24 23:15 Temperature 97.0 F L Pulse Rate 69 70 Respiratory Rate 18 18 Blood Pressure 116/59 L 116/61 Pulse Oximetry 93 92 Oxygen Delivery Method Oxygen Flow Rate 0 0
[2024-09-17] MEDS: PIPERACILLIN/TAZO 3.375 GM in SODIUM CHLORIDE 0.9% 100 ML IV ×3 (05:36→22:42)
[2024-09-17 06:00] LABS: Add Manual Diff / Slide Review NO; Basophils Absolute Auto 0 /uL (0-100); Basophils Percent Auto 0.1 % (0-2); Eosinophils Absolute Auto 0 /uL (0-450); Hematocrit 31.8 % (41-53); Lymphocytes Absolute Auto 500 /uL (1100-4500); Lymphocytes Percent Auto 3.6 % (25-40); Mean Corpuscular HGB Conc 34.6 % (30-36); Mean Corpuscular Hemoglobin 31.5 PG (26-34); Mean Corpuscular Volume 91.1 fL (80-100); Monocytes Absolute Auto 1000 /uL (0-900); Monocytes Percent Auto 6.7 % (3-14); Neutrophils Absolute Auto 13400 /uL (1500-7000); Neutrophils Percent Auto 89.6 % (50-75); Platelet Count 173 X10^3/uL (150-400); Red Blood Cell Count 3.49 X10^6/uL (4.5-5.9); White Blood Cell Count 14.9 X10^3/uL (4.5-11.0)
[2024-09-17 06:18] LABS: BUN Creatinine Ratio 21.6 (6-22); Blood Urea Nitrogen 16 mg/dL (9-20); Calcium 8.4 mg/dL (8.4-10.2); Carbon Dioxide 25 mmol/L (22-32); Chloride 96 mmol/L (98-107); Estimated Glomerular Filt Rate > 60 mL/min (>60); Glucose 171 mg/dL (80-110); HEMOLYSIS < 15 (0-50); Sodium 126 mmol/L (137-145)
[2024-09-17] MEDS: ENOXAPARIN 40 MG/0.4 ML SYRINGE SUBCUT (08:15)
[2024-09-17] MEDS: SODIUM CHLORIDE 0.9% 1,000 ML 100 ML IV ×2 (08:15→17:56)
--- NOTE | 2024-09-17 09:35 | PT.IIE ---
Current Diagnoses Perforation of intestine (nontraumatic) (09/16/24) Other specified symptoms and signs involving the digestive system and abdomen (09/16/24) Surgery Performed Operation Date: 09/16/24 19:00 Actual Procedures p Exploratory Laparotomy GEN Right Hemicolectomy Diagnosis of Appendecele Tumor - Jason Feldman MD Surgical History (Last Updated 09/16/24 @ 18:25 by Jason Feldman MD) H/O umbilical hernia repair Medical History (Last Updated 09/16/24 @ 18:25 by Jason Feldman MD) HTN (hypertension) Physical Therapy Inpatient Evaluation/Re-Eval M1 PT/OT-IP Prior Functional Status Start: 09/17/24 12:05 Freq: NEEDED Status: Active Protocol: Document 09/17/24 09:35 AB (Rec: 09/17/24 12:16 AB [id number]) Medical Review Prior Functional Status Medical History Reviewed Yes Communication able to make needs known Mobility and Gait pt stated that he was indpeendent with all mobilities and ambulation without AD but uses a SPC if walking on uneven surfaces due to L knee pain Social History Household Members spouse Living Arrangements House Number of Floors (Floors) One Floor Number of Stairs To Enter/Railing? no steps to enter Home Environment High Toilet,Walk in Shower Home Equipment Straight Cane M2 PT-IP Current Condition Start: 09/17/24 12:05 Freq: NEEDED Status: Active Protocol: Document 09/17/24 09:35 AB (Rec: 09/17/24 12:16 AB [id number]) Physical Therapy Current Condition Current Condition Evaluation Date 09/17/24 Treatment Diagnosis s/p R hemicolectomy; difficulty in walking Onset Date 09/16/24 M3 PT-IP Subjective Start: 09/17/24 12:05 Freq: NEEDED Status: Active Protocol: Document 09/17/24 09:35 AB (Rec: 09/17/24 12:16 AB [id number]) Subjective Physical Therapy Visit Type Type Initial Evaluation Visit Start Time 09:35 Visit Stop Time 10:11 Number of CORRECTION OFFICER HEAD Visits 0 Physical Therapy Visit Comments Patient Comments agreeable to do PT Therapy Pain Assessment Pain When Pain Assessed During Mobility Pain Present Pain Present Pain Reported Location Bilateral Lower Medial Abdomen Intensity 7 Scale Used Numeric (0 - 10) Pain Management Techniques Distraction,Modification of Treatment,Re-positioning, Timing of Activity with Medications M4 PT-IP Mobility and Gait Start: 09/17/24 12:05 Freq: NEEDED Status: Active Protocol: Document 09/17/24 09:35 AB (Rec: 09/17/24 12:16 AB [id number]) PT-Bed Mobility Assessment Rolling Type of Rolling Log Rolling Level of Assist Minimal Assistance Supine to Sit Supine to Sit Minimal Assistance,1 Person Assistance PT-Transfer Assessment Sit to and From Stand Sit to and from Stand Minimal Assistance,1 Person Assistance,Use of Upper Extremities Equipment Transfer Assistive Device Gait Belt,Front Wheeled Walker Orthotic/Prosthetic Devices or Brace: No Transfers Transfer Destination Chair Transfer Technique ambulated Transfer Ability Level of Assist Minimal Assistance,1 Person Assistance,Use of Upper Extremities Comments Mobility Comments pt supine in bed. spouse in room. obtained PLOF and home set up. post-op handout provided to pt. educated pt on abdominal precautions. BP: 137/70. pt completed log roll bed mobility min A and max cues. pt able to sit on EOB SBA. no c/o dizziness. BP: 141/75. pt completed sit to stand min A and cues and ambulated in room using FWW ~ 50 ft min A and cues. pt agreed to sit on the chair. positioned pt on the chair. call light and table placed within reach. Gait Assessment Gait Gait Assistance Required: Minimum Assistance Distance (Feet) 50 Able to Maintain Weight Bearing Status Yes During Gait Assistive Devices Assistive Device Gait Belt,Front Wheeled Walker Orthotic/Prosthetic Devices or Brace: No Gait Deviations General Gait Pattern Ataxic,Decreased Stride Length ,Decreased Feet Clearance Factors Limiting Gait Function Factors Limiting Gait Function Decreased Activity Tolerance, Decreased Strength,Limited Range of Motion,Pain,Poor Balance PT-Balance Assessment Sitting Balance and Reactions Static Sitting Balance Ability Normal Dynamic Sitting Balance Ability Good Standing Balance and Reactions Static Standing Balance Ability Fair Dynamic Standing Balance Ability Fair Device Used FWW M5 PT-IP Objective Assessments Start: 09/17/24 12:05 Freq: NEEDED Status: Active Protocol: Document 09/17/24 09:35 AB (Rec: 09/17/24 12:16 AB [id number]) Orientation Orientation/Cognition Level of Alertness Alert Orientation Name,Age,Birthday,Month,Date, Year,Day of Week,Place, Situation Safety Awareness Understands Safety Issues Memory Description No Deficits Noted Gross Range of Motion Lower Extremity ROM Assessment Within Functional Limits Strength Lower Extremity Strength Assessment Left Impaired Hip 4/5 Knee 4-/5 Coordination Assessment Gross Coordination Gross Coordination WNL Sensation Assessment Sensation Gross Sensation WNL Muscle Tone Muscle Tone WNL Yes M6 PT-IP Treatment Start: 09/17/24 12:05 Freq: NEEDED Status: Active Protocol: Document 09/17/24 09:35 AB (Rec: 09/17/24 12:16 AB [id number]) Physical Therapy Treatment Education Education Provided Precautions,Post-Op Packet, Safety M7 PT-IP Assessment and Plan Start: 09/17/24 12:05 Freq: NEEDED Status: Active Protocol: Document 09/17/24 09:35 AB (Rec: 09/17/24 12:16 AB [id number]) PT Summary Assessment and Plan Potential Rehabilitation Potential Fair Status of Condition at Evaluation Evolving Summary Impairments Pain,ROM,Strength,Balance, Coordination,Sensation,Tone, Cognition,Bed Mobility, Transfers,Gait,Activity Tolerance Assessment Summary pt is a 78 y/o M with c/o abdominal pain/appendiceal mass s/p R hemicolectomy POD 1 . pt requiring min A with ambulation using FWW. pt lives with spouse and spouse will be able to assist pt. pt stated that he can borrow a FWW. will continue to assess progress. Goals Bed Mobility Goal Independent Transfer Goal Independent,Front Wheeled Walker Gait Goal Independent,Front Wheel Walker Gait Distance 200 Other Goals improve ambulation using LRAD/ without AD 200 ft mod I Days to Meet Goals 10 Frequency of Treatment Frequency Of Treatment Once a Day Treatment Plan Physical Therapy Treatment Plan Bed Mobility Training,Transfer Training,Gait Training, Therapeutic Exercise,Balance Retraining,Post Op Education, Discharge Planning,Hot or Cold Pack,Neuromuscular Re-ed, Coordination Retraining,Manual Therapy Other Recommendations and Next Treatment log roll bed mobility, Focus ambulation Precautions Abdominal Surgery Precautions Log Roll,Lifting Restrictions, Gait Belt above Incisional Area Recommendations To Nursing Amount of Assist Needed 1 Person Assist Discharge Recommendations PT Discharge Recommendations Home with Assistance,Home Health Transportation Needs at Discharge Private Vehicle
[2024-09-17] MEDS: CELECOXIB 200 MG CAPSULE PO ×2 (10:27→20:31)
[2024-09-17] MEDS: lisinopriL 5 MG TABLET PO (10:27)
[2024-09-17] MEDS: SODIUM CHLORIDE 0.9% FLUSH 10 ML IV ×4 (10:28→20:32)
--- NOTE | 2024-09-17 10:36 | PM.PN.1 ---
Subjective Subjective Date Patient Seen: 09/17/24 Time Patient Seen: 10:36 Interval history: No complaints today. Exam Vital Signs (past 8 hours): - 09/17/24 05:00 09/17/24 07:00 09/17/24 10:27 Temperature 97.7 F Pulse Rate 81 81 Respiratory Rate 16 Blood Pressure 133/69 133/69 Pulse Oximetry 92 93 Oxygen Delivery Method Room Air Oxygen Flow Rate 0 Oxygen Delivery Method Room Air Oxygen Flow Rate 0 Narrative Exam Narrative: Abdomen is soft Dressing intact Cordoba draining clear yellow urine Objective Labs 09/17/24 04:54 09/17/24 04:54 Labs: Laboratory Results - last 24 hr 09/16/24 09/16/24 09/16/24 12:48 14:47 17:29 WBC 20.7 H RBC 4.09 L Hgb 12.6 L Hct 37.5 L MCV 91.6 MCH 30.8 MCHC 33.6 RDW 13.4 Plt Count 220 Neut % (Auto) 86.9 H Lymph % (Auto) 3.1 L [place] % (Auto) 9.8 Eos % (Auto) 0.0 L Baso % (Auto) 0.2 Neut # (Auto) 80974 H Lymph # (Auto) 700 L [place] # (Auto) 2000 H Eos # (Auto) 0 Baso # (Auto) 0 PT 14.0 H INR 1.2 Sodium 126 L Potassium 4.0 Chloride 93 L Carbon Dioxide 23 BUN 15 Creatinine 0.75 Estimated GFR > 60 BUN/Creatinine Ratio 20.0 Glucose 208 H Lactate Calcium 9.2 Total Bilirubin 1.2 AST 37 ALT 24 Alkaline Phosphatase 88 Total Protein 7.0 Albumin 4.3 Globulin 2.7 Albumin/Globulin Ratio 1.6 Lipase < 10 L Ur Bilirubin Confirm Negative Urine RBC 0-1/hpf Urine WBC 5-10/hpf H Ur Squamous Epith Cells 0-1 /hpf Urine Bacteria Moderate (10-30) H Urine Mucus 3+ H Vol Urine Centrifuged 10ml (spun) A.calcoaceticus-baumannii cmplx PCR Not detected Bacteroides fragilis Not detected Ann-Marie albicans (PCR) Not detected Ann-Marie auris (PCR) Not detected C. glabrata (PCR) Not detected C. krusei (PCR) Not detected C. parapsilosis (PCR) Not detected C. tropicalis (PCR) Not detected C. neoform/gattii (PCR) Not detected Enterobacterales (PCR) Not detected E. cloacae complex PCR Not detected Enterococc faecalis PCR Not detected Enterococc faecium PCR Not detected E. coli (PCR) Not detected H. influenzae (PCR) Not detected Klebsiella aerogenes (PCR) Not detected Klebsiella oxytoca PCR Not detected Klebsiella pneumoniae Not detected List. monocytogenes PCR Not detected N. meningitidis (PCR) Not detected Proteus species (PCR) Not detected Salmonella spp. (PCR) Not detected Serratia marcescens PCR Not detected Staphylococcus sp PCR Not detected Staph aureus (PCR) Not detected mecA/C & MREJ Resist Gene Not applicable mecA/C-Methicil Resis Gene Not applicable mcr-1 Col[place]in Res Gene PCR Not applicable Staph epidermidis (PCR) Not detected Staph lugdunensis PCR Not detected S. maltophilia (PCR) Not detected Streptococcus sp PCR Not detected Group A Strep (PCR) Not detected Strep agalactiae (PCR) Not detected Strep pneumoniae (PCR) Not detected P. aeruginosa (PCR) Not detected Erik/B-Vanco Res Genes Not applicable blaIMP Car res Gene PCR Not applicable KPC-Carbap Res Gene PCR Not applicable blaNDM Car Res Gene PCR Not applicable OXA-48 Carbapenem Resis Gene (PCR) Not applicable blaVIM Car Res Gene PCR Not applicable CTX-M Gene Resistance (PCR) Not applicable 09/16/24 09/17/24 18:22 04:54 WBC 14.9 H RBC 3.49 L Hgb 11.0 L Hct 31.8 L MCV 91.1 MCH 31.5 MCHC 34.6 RDW 13.0 Plt Count 173 Neut % (Auto) 89.6 H Lymph % (Auto) 3.6 L [place] % (Auto) 6.7 Eos % (Auto) 0.0 L Baso % (Auto) 0.1 Neut # (Auto) 27394 H Lymph # (Auto) 500 L [place] # (Auto) 1000 H Eos # (Auto) 0 Baso # (Auto) 0 PT INR Sodium 126 L Potassium 4.0 Chloride 96 L Carbon Dioxide 25 BUN 16 Creatinine 0.74 Estimated GFR > 60 BUN/Creatinine Ratio 21.6 Glucose 171 H Lactate 1.8 Calcium 8.4 Total Bilirubin AST ALT Alkaline Phosphatase Total Protein Albumin Globulin Albumin/Globulin Ratio Lipase Ur Bilirubin Confirm Urine RBC Urine WBC Ur Squamous Epith Cells Urine Bacteria Urine Mucus Vol Urine Centrifuged A.calcoaceticus-baumannii cmplx PCR Bacteroides fragilis Ann-Marie albicans (PCR) Ann-Marie auris (PCR) C. glabrata (PCR) C. krusei (PCR) C. parapsilosis (PCR) C. tropicalis (PCR) C. neoform/gattii (PCR) Enterobacterales (PCR) E. cloacae complex PCR Enterococc faecalis PCR Enterococc faecium PCR E. coli (PCR) H. influenzae (PCR) Klebsiella aerogenes (PCR) Klebsiella oxytoca PCR Klebsiella pneumoniae List. monocytogenes PCR N. meningitidis (PCR) Proteus species (PCR) Salmonella spp. (PCR) Serratia marcescens PCR Staphylococcus sp PCR Staph aureus (PCR) mecA/C & MREJ Resist Gene mecA/C-Methicil Resis Gene mcr-1 Colistin Res Gene PCR Staph epidermidis (PCR) Staph lugdunensis PCR S. maltophilia (PCR) Streptococcus sp PCR Group A Strep (PCR) Strep agalactiae (PCR) Strep pneumoniae (PCR) P. 

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
--- NOTE | 2024-09-17 17:09 | PC.NURSE ---
At start of shift patient said they talke lisinopril however it was not ordered so RN called public relations associate provider and was ok to continue home med Lisinopril 5mg daily and ok to give po meds and then continue with Liquid diet. New orders placed, pt agreeable. The pt has been up walking the halls a couple times today and denied pain.
[2024-09-17] MEDS: CALCIUM CARBONATE 500 MG TAB 1000 MG PO (22:53)
[2024-09-18] VITALS (9 sets, daily range): BP systolic 131–152; BP diastolic 70–85; PULSE 69–78; RESP 16–20; TEMP 35.9–36.9; O2SAT 94–100
[2024-09-18] MEDS: SODIUM CHLORIDE 0.9% 1,000 ML 100 ML IV (03:06)
[2024-09-18 05:31] LABS: Add Manual Diff / Slide Review NO; Basophils Absolute Auto 0 /uL (0-100); Basophils Percent Auto 0.2 % (0-2); Eosinophils Absolute Auto 0 /uL (0-450); Hematocrit 30.3 % (41-53); Hemoglobin 10.4 g/dL (13.5-17.5); Lymphocytes Absolute Auto 700 /uL (1100-4500); Lymphocytes Percent Auto 6.9 % (25-40); Mean Corpuscular HGB Conc 34.3 % (30-36); Mean Corpuscular Hemoglobin 31.5 PG (26-34); Mean Corpuscular Volume 91.9 fL (80-100); Monocytes Absolute Auto 1100 /uL (0-900); Monocytes Percent Auto 10.3 % (3-14); Neutrophils Absolute Auto 8800 /uL (1500-7000); Neutrophils Percent Auto 82.6 % (50-75); Platelet Count 189 X10^3/uL (150-400); White Blood Cell Count 10.7 X10^3/uL (4.5-11.0)
[2024-09-18] MEDS: PIPERACILLIN/TAZO 3.375 GM in SODIUM CHLORIDE 0.9% 100 ML IV (05:37)
[2024-09-18 05:54] LABS: Blood Urea Nitrogen 19 mg/dL (9-20); Calcium 8.5 mg/dL (8.4-10.2); Carbon Dioxide 24 mmol/L (22-32); Chloride 100 mmol/L (98-107); Estimated Glomerular Filt Rate > 60 mL/min (>60); Glucose 139 mg/dL (80-110); HEMOLYSIS < 15 (0-50); Potassium 3.7 mmol/L (3.4-5.1); Sodium 128 mmol/L (137-145)
--- NOTE | 2024-09-18 06:34 | PC.NURSE ---
photo mask pattern generator: Patient had x1 episode of stool incontinence overnight, patient reported bright red blood in his stool, flushed prior to RN visualizing. Denies pain, nausea, SOB. VSS. Notified MD Feldman, continuing to monitor.
[2024-09-18] MEDS: ENOXAPARIN 40 MG/0.4 ML SYRINGE SUBCUT (09:37)
[2024-09-18] MEDS: lisinopriL 5 MG TABLET PO (09:38)
[2024-09-18] MEDS: CELECOXIB 200 MG CAPSULE PO ×2 (09:38→20:00)
--- NOTE | 2024-09-18 10:13 | PM.PN.1 ---
Subjective Subjective Date Patient Seen: 09/18/24 Time Patient Seen: 10:13 Interval history: Had a bloody bowel movement overnight. Otherwise no problems. Walking in the hallways this morning. Exam Vital Signs (past 8 hours): - 09/18/24 05:00 09/18/24 05:00 09/18/24 08:00 Temperature 96.7 F L 97 F L Pulse Rate 71 73 Respiratory Rate 16 16 Blood Pressure 131/76 140/76 Pulse Oximetry 94 94 100 Oxygen Delivery Method Room Air Oxygen Flow Rate 0 0 09/18/24 09:38 Temperature Pulse Rate 74 Respiratory Rate Blood Pressure 140/70 Pulse Oximetry Oxygen Delivery Method Oxygen Flow Rate Oxygen Delivery Method Room Air Oxygen Flow Rate 0 Const General: No acute distress Resp Effort & Inspection: normal respiratory effort Objective Labs 09/18/24 05:11 09/18/24 05:11 Labs: Laboratory Results - last 24 hr 09/18/24 05:11 WBC 10.7 RBC 3.30 L Hgb 10.4 L Hct 30.3 L MCV 91.9 MCH 31.5 MCHC 34.3 RDW 13.0 Plt Count 189 Neut % (Auto) 82.6 H Lymph % (Auto) 6.9 L Door % (Auto) 10.3 Eos % (Auto) 0.0 L Baso % (Auto) 0.2 Neut # (Auto) 8800 H Lymph # (Auto) 700 L Door # (Auto) 1100 H Eos # (Auto) 0 Baso # (Auto) 0 Sodium 128 L Potassium 3.7 Chloride 100 Carbon Dioxide 24 BUN 19 Creatinine 0.73 Estimated GFR > 60 BUN/Creatinine Ratio 26.0 H Glucose 139 H Calcium 8.5 PFSH Medical History (Updated 09/16/24 @ 18:29 by Jason Feldman MD) HTN (hypertension) Surgical History (Updated 09/16/24 @ 18:25 by Jason Feldman MD) H/O umbilical hernia repair Social History (Updated 09/16/24 @ 18:25 by Jason Feldman MD) household members: spouse Smoking Status: Former smoker 

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
[2024-09-18] MEDS: SODIUM CHLORIDE 0.9% FLUSH 10 ML IV (20:00)
--- NOTE | 2024-09-18 22:47 | PC.NURSE ---
pt resting comfortably in bed. pod #2 of exploratory laparotomy. a&o x4. o2 sats 98% on room air. vss. lungs cta. abdomen distended & nontender. active bowel sounds x4 quadrants. ptstates he has been passing flatus. midline incision covered w/ aquacell dressing w/ bloody drainage at the top and bottom. denies pain. denies nausea. tolerating diet. standby assist & independent in room w/ fww. @ bedside and helps pt ambulate. scds not on due to pt being independent in the room. bed in lowest position, call light within reach.
[2024-09-19] VITALS (10 sets, daily range): BP systolic 150–157; BP diastolic 74–87; PULSE 68–71; RESP 16–18; TEMP 35.9–36.1; O2SAT 94–99
[2024-09-19 06:01] LABS: Add Manual Diff / Slide Review NO; Basophils Absolute Auto 0 /uL (0-100); Basophils Percent Auto 0.5 % (0-2); Eosinophils Absolute Auto 100 /uL (0-450); Eosinophils Percent Auto 2.5 % (2-4); Hemoglobin 10.4 g/dL (13.5-17.5); Lymphocytes Absolute Auto 1100 /uL (1100-4500); Lymphocytes Percent Auto 20.2 % (25-40); Mean Corpuscular HGB Conc 34.6 % (30-36); Mean Corpuscular Hemoglobin 31.5 PG (26-34); Mean Corpuscular Volume 91.1 fL (80-100); Monocytes Absolute Auto 800 /uL (0-900); Monocytes Percent Auto 15.8 % (3-14); Neutrophils Absolute Auto 3200 /uL (1500-7000); Platelet Count 213 X10^3/uL (150-400); Red Blood Cell Count 3.29 X10^6/uL (4.5-5.9); Red Cell Distribution Width 13.2 % (11.6-14.8); White Blood Cell Count 5.2 X10^3/uL (4.5-11.0)
[2024-09-19 06:16] LABS: BUN Creatinine Ratio 23.1 (6-22); Blood Urea Nitrogen 15 mg/dL (9-20); Calcium 8.4 mg/dL (8.4-10.2); Carbon Dioxide 25 mmol/L (22-32); Chloride 100 mmol/L (98-107); Estimated Glomerular Filt Rate > 60 mL/min (>60); Glucose 110 mg/dL (80-110); HEMOLYSIS < 15 (0-50); Potassium 3.6 mmol/L (3.4-5.1); Sodium 128 mmol/L (137-145)
--- NOTE | 2024-09-19 09:19 | P.PN_ITS ---
Subjective Subjective Date Patient Seen: 09/19/24 Time Patient Seen: 08:50 Interval history: Evan has done well. He was tolerating some regular diet and passing some gas. No real bowel movement yet. His surgical pain is minimal at this point. He has been walking. Exam Vital Signs (past 8 hours): - 09/19/24 05:00 09/19/24 07:45 Temperature 96.6 F L Pulse Rate 71 Respiratory Rate 18 Blood Pressure 152/74 H Pulse Oximetry 96 94 Oxygen Delivery Method Room Air Oxygen Flow Rate 0 Oxygen Delivery Method Room Air Oxygen Flow Rate 0 Narrative Exam Narrative: Abdomen is soft Incision clean dry and intact Objective Labs 09/19/24 05:07 09/19/24 05:07 Labs: Laboratory Results - last 24 hr 09/19/24 05:07 WBC 5.2 D RBC 3.29 L Hgb 10.4 L Hct 30.0 L MCV 91.1 MCH 31.5 MCHC 34.6 RDW 13.2 Plt Count 213 Neut % (Auto) 61.0 D Lymph % (Auto) 20.2 L [place] % (Auto) 15.8 H Eos % (Auto) 2.5 Baso % (Auto) 0.5 Neut # (Auto) 3200 Lymph # (Auto) 1100 [place] # (Auto) 800 Eos # (Auto) 100 Baso # (Auto) 0 Sodium 128 L Potassium 3.6 Chloride 100 Carbon Dioxide 25 BUN 15 Creatinine 0.65 L Estimated GFR > 60 BUN/Creatinine Ratio 23.1 H Glucose 110 Calcium 8.4 PFSH Medical History (Updated 09/16/24 @ 18:29 by Jason Feldman MD) HTN (hypertension) Surgical History (Updated 09/16/24 @ 18:25 by Jason Feldman MD) H/O umbilical hernia repair Social History (Updated 09/16/24 @ 18:25 by Jason Feldman MD) household members: spouse Smoking Status: Former smoker 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 His only concern is getting up and out of bed at home. He should work on mobility today. He should be ready to go home by tomorrow at the latest. Time-Based Coding :: [TOTAL MINUTES] spent with patient and on the chart (including review of chart, obtaining history, exam, reviewing outside data, placing orders, documenting exam and treatment plan, and counseling patient) on [DATE].
[2024-09-19] MEDS: CELECOXIB 200 MG CAPSULE PO ×2 (09:35→20:28)
[2024-09-19] MEDS: SODIUM CHLORIDE 0.9% FLUSH 10 ML IV ×2 (09:36→20:28)
[2024-09-19] MEDS: ENOXAPARIN 40 MG/0.4 ML SYRINGE SUBCUT (09:36)
[2024-09-19] MEDS: lisinopriL 5 MG TABLET PO (09:36)
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
--- NOTE | 2024-09-19 12:19 | OT.IP.EVAL ---
Current Diagnoses Perforation of intestine (nontraumatic) (09/16/24) Other specified symptoms and signs involving the digestive system and abdomen (09/16/24) Surgery Performed Operation Date: 09/16/24 19:00 Actual Procedures p Exploratory Laparotomy, Right Hemicolectomy Diagnosis of Appendecele Tumor - Jason Feldman MD Past Medical History (Last Updated 09/16/24 @ 18:25 by Jason Feldman MD) HTN (hypertension) Surgical History (Last Updated 09/16/24 @ 18:25 by Jason eFldman MD) H/O umbilical hernia repair Occupational Therapy Inpatient Evaluation/Re-Eval M1 PT/OT-IP Prior Functional Status Start: 09/17/24 12:05 Freq: NEEDED Status: Active Protocol: Document 09/19/24 18:55 CGR (Rec: 09/19/24 19:11 CGR [id number]) Medical Review Prior Functional Status Medical History Reviewed Yes Communication Pt is an effective verbal communicator Mobility and Gait pt stated that he was indpeendent with all mobilities and ambulation without AD but uses a SPC if walking on uneven surfaces due to L knee pain Activities of Daily Living and IADL's Pt states that he is IND in all ADLs and IADLs. 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 Social History Household Members spouse Living Arrangements House Number of Floors (Floors) One Floor Number of Stairs To Enter/Railing? No steps to enter. Home Environment High Toilet,Walk in Shower Home Equipment Front Wheel Walker,Straight Cane Employment Status Retired M2 OT-IP Current Condition Start: 09/19/24 18:55 Freq: Status: Active Protocol: Document 09/19/24 18:55 CGR (Rec: 09/19/24 19:11 CGR [id number]) Occupational Therapy Current Condition Current Condition Evaluation Date 09/19/24 Treatment Diagnosis perforated bowel, 09/16 exlap with R florence colectomy Diagnosis Onset Date 09/16/24 Post Operative Precautions Abdominal Surgery Precautions Log Roll,Lifting Restrictions, Gait Belt above Incisional Area M3 OT- IP Subjective and Pain Start: 09/19/24 18:55 Freq: Status: Active Protocol: Document 09/19/24 18:55 CGR (Rec: 09/19/24 19:11 CGR [id number]) OT- Subjective Occupational Therapy Visit Type Type Initial Evaluation Visit Start Time 11:54 Visit Stop Time 12:19 Notes Pts present throughout OT Pain Assessment Pain When Pain Assessed At Rest Pain Present Pain Present Denied Pain M4 OT- IP ADL's Start: 09/19/24 18:55 Freq: Status: Active Protocol: Document 09/19/24 18:55 CGR (Rec: 09/19/24 19:11 CGR [id number]) OT JOG-Thmm-[place] Comments OT Self-Feeding Comments Lunch arrived while pt was working with therapy but this securities underwriter did not see patient eating at end of session. OT ADL-Grooming General Evaluation Grooming Ability Standby Assistance Areas Needing Assistance Face Washing Comments OT Grooming Comments standing at sink OT ADL-Oral Care Comments Oral Care Comments pt declined to perform and states that he will perform after he eats lunch. OT ADL-Dressing General Eval Lower Body Dressing Ability Moderate Assistance Areas Needing Assistance Socks Comments OT Dressing Comments Pt demonstrates the ability to doff and don sock to the RLE but he is unable to perform to the LLE. Pt declined teaching of sock aid and manager strategic development for LB dressing stating that his will help him. OT ADL-Toileting General Evaluation Toileting Ability Independent Comments OT Toileting Comments simulated seated on toilet OT ADL-Bathing Comments OT Bathing Comments not performed M5 OT- IP IADL's Start: 09/19/24 18:55 Freq: Status: Active Protocol: Document 09/19/24 18:55 CGR (Rec: 09/19/24 19:11 CGR [id number]) OT-Instrumental Activities of Daily Living Deficits IADL Deficits Identified No Deficits Home Safety Awareness Awareness of Need for Assistance at Home Good Awareness Ability to Problem Solve Emergency Able to Problem Solve Situations Medication Management Medication Management No Deficits Identified Money Management Money Management No Deficits Identified Meal Preparation Meal Preparation No Deficits Identified Rotary Cutter Feeder Rotary Cutter Feeder No Deficits Identified Driving Driving Comments Pt states he is an active armored car 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 and driver M6 OT- IP Functional Cognition Start: 09/19/24 18:55 Freq: Status: Active Protocol: Document 09/19/24 18:55 CGR (Rec: 09/19/24 19:11 CGR [id number]) Cognitive Factors Limiting Selfcare Function Cognitive Ability Level of Alertness Alert Patient Orientation Name,Age,Birthday,Month,Date, Year,Day of Week,Place, Situation Attention Span Ability Capable of Focused Attention, Capable of Sustained Attention Ability to Follow Commands Able to Follow Multi-Step Commands OT- Vision and Hearing OT- Hearing Assessment OT- Hearing Assessment WFL OT- Vision Assessment Visual Acuity Glasses For Reading Visual Attentiveness WFL Occular Pursuits WFL Visual Convergence WFL Vision Assessment Comments pt has transitions bifocals M7 OT- IP Mobility and Balance Start: 09/19/24 18:55 Freq: Status: Active Protocol: Document 09/19/24 18:55 CGR (Rec: 09/19/24 19:11 CGR [id number]) OT-Transfer Assessment Sit to and From Stand Sit to and from Stand Standby Assistance Transfers Transfer Ability Standby Assistance Technique Transfer Destination Chair,Toilet Transfer Technique Stand Step Pivot Devices Transfer Assistive Devices Gait Belt,Front Wheeled Walker Comments Mobility Comments Mobility around the room and bathroom. OT- Balance Assessment Sitting Balance and Reactions Static Sitting Balance Ability Good Dynamic Sitting Balance Ability Good M8 OT- IP Objective Assessments Start: 09/19/24 18:55 Freq: Status: Active Protocol: Document 09/19/24 18:55 CGR (Rec: 09/19/24 19:11 CGR [id number]) OT Gross Range of Motion Upper Extremity Range of Motion Assessment Within Functional Limits OT Strength Upper Extremity Strength Assessment Within Functional Limits Comments Strength Comments grossly 4+/5, L arm and hand 4 -/5 from previous injury OT- Coordination Assessment Upper Extremity Finger to Nose Test Within Functional Limits Finger Tapping Test Within Functional Limits OT-Muscle Tone Assessment Muscle Tone WNL Yes M9 OT- IP Assessment and Plan Start: 09/19/24 18:55 Freq: Status: Active Protocol: Document 09/19/24 18:55 CGR (Rec: 09/19/24 19:11 CGR [id number]) OT Summary Assessment and Plan Potential Rehabilitation Potential Excellent Analytic Complexity at Evaluation Low Summary OT Impairments Strength,Functional Mobility, Dressing,Shower Transfers Progress Towards Goals Safe For Discharge Assessment Summary Pt presents as a low complexity evaluation s/p admit for perforated bowel and underwent 09/16 exlap with R florence colectomy. Pt is ambulating well with 2WW in the room and is confident in his ability to perform aDLs without assist or with his wifes assist. Pt states that he thinks he will be ready to go home tomorrow and he doesn' t feel that he needs any further OT services. Pt is safe for discharge home with and no further OT needs. Frequency of Treatment Frequency Of Treatment Discharge Discharge Recommendations OT Discharge Recommendations Home with Assistance Transportation Needs at Discharge Private Vehicle
[2024-09-19] MEDS: ACYCLOVIR 400 MG TABLET 200 MG PO ×3 (13:21→20:27)
[2024-09-20 01:00] VITALS: O2SAT 98
[2024-09-20 04:00] VITALS: BP 163/83; PULSE 73; RESP 18; TEMP 36.2; O2SAT 94
[2024-09-20 05:00] VITALS: O2SAT 94
[2024-09-20 08:00] VITALS: BP 148/82; PULSE 79; RESP 16; TEMP 36.2; O2SAT 94
[2024-09-20 09:00] VITALS: O2SAT 96
[2024-09-20] MEDS: ACYCLOVIR 400 MG TABLET 200 MG PO (09:18)
[2024-09-20 09:19] VITALS: BP 163/83; PULSE 73
[2024-09-20] MEDS: CELECOXIB 200 MG CAPSULE PO (09:19)
[2024-09-20] MEDS: lisinopriL 5 MG TABLET PO (09:19)
[2024-09-20] MEDS: ENOXAPARIN 40 MG/0.4 ML SYRINGE SUBCUT (09:19)
--- NOTE | 2024-09-20 10:44 | CM.DPC ---
DCP Continued: Reviewed EMR and team rounds for pt?s medical status. Per rounds, pt is POD4 and progressing well towards a safe discharge home with spouse. Per PT, a FWW was dispensed for pt for discharge home. No discharge needs identified at this time. Plan: Anticipating discharge home with spouse when medically cleared. CM Team will continue to follow for coordination of discharge plans. JUSTIN Gardiner
--- NOTE | 2024-09-20 12:07 | PM.DS.1 ---
History of Present Illness History of Present Illness Date Patient Seen: 09/20/24 Chief complaint: abd px, vomiting green bile Narrative: Evan Plummer is a 78-year-old man with history of hypertension who presents to the emergency department at [facility] with acute onset of abdominal pain. Pain began 36 hours ago primarily central and right lower quadrant. He has associated nausea and emesis. Previous abdominal surgery includes umbilical hernia repair. On arrival WBC 21 with left shift sodium 126 chloride [address] abdomen pelvis personally reviewed demonstrates an abscess in the right lower quadrant with phlegmon and perforated hollow viscus. No mention of appendix on CT read and I can not personally identify at either. He has had a colonoscopy in the past which has been normal sometime within the last several years. Discharge Providers Provider Date of admission: 09/16/24 18:11 Discharge Date: 09/20/24 Primary care physician: Doctor Nicole MD Consults: 09/16/24 21:44 Consult to Discharge Planning Routine Comment: Consult to Occupational Therapy Evaluate & Treat Comment: Physician Instructions: Evaluate and treat Consult to Physical Therapy Evaluate & Treat Comment: Physician Instructions: Evaluate and Treat 09/19/24 10:18 Consult to Physical Therapy Evaluate & Treat Comment: Perforated bowel, exploratory lap, abscess Physician Instructions: Set up FWW for home use Discharge provider: Jason Feldman MD Summary Hospital Course 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 He is found to have a ruptured appendiceal mass and underwent a right hemicolectomy. Unremarkable postoperative course Exam Vital Signs (past 8 hours): - 09/20/24 05:00 09/20/24 08:00 09/20/24 09:00 Temperature 97.2 F L Pulse Rate 79 Respiratory Rate 16 Blood Pressure 148/82 H Pulse Oximetry 94 94 96 Oxygen Delivery Method Room Air Room Air Oxygen Flow Rate 0 0 09/20/24 09:19 Temperature Pulse Rate 73 Respiratory Rate Blood Pressure 163/83 H Pulse Oximetry Oxygen Delivery Method Oxygen Flow Rate Oxygen Delivery Method Room Air Oxygen Flow Rate 0 Narrative Exam Narrative: General adult man alert oriented no acute distress Chest nonlabored respiration Abdomen soft appropriately tender to palpation. Midline incision clean dry intact with georgie. 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 -No lifting >10 lbs x 4 weeks. -Walking only for exercise for 4 weeks. Discharge orders & Medications Prescriptions: New ibuprofen 200 mg tablet 400 mg PO Q6H Qty: 60 0RF acetaminophen [Tylenol] 325 mg capsule 650 mg PO QID PRN (Reason: pain) Qty: 60 0RF Continued lisinopril 5 mg tablet 5 mg PO DAILY Follow up/Referrals: Jason Feldman MD [Physician] - 09/30/24 (Staple removal) Diet/Activity/Treatments Diet: Diet as Tolerated Skin/Wound/Dressing Care Report to your healthcare provider any signs of infection, such as:: chills, fever, increased pain, unusual drainage and unusual redness Visit Report/Discharge Packet Stand Alone Forms: Patient Portal/API, Stroke Signs & Symptoms Discharge Data Primary Care Provider: Miscellaneous,Doctor
== END 2024-09-20 13:05 | disposition home or self-care (01) | DRG 329 ==
LOC: ED 13:01 → AC 18:19
PROVIDERS: Admitting Provider Surgery; Emergency Provider Emergency Medicine; Referring Provider Emergency Medicine; Visit Provider Surgery
PROC: 0DTF0ZZ Resection of Right Large Intestine, Open Approach (ICD-10-PCS; CPT 49000; principal; 2024-09-16 19:00)
DX: C18.1 Malignant neoplasm of appendix (principal); K35.33 Acute appendicitis with perforation, localized peritonitis, and gangrene, with abscess; I10 Essential (primary) hypertension; Z87.891 Personal history of nicotine dependence
CPT/HCPCS: 36415; 44160; 74177; 80048; 80053; 81003; 81015; 83605; 83690; 85025; 85610; 87040; 87070; 87075; 87076; 87077; 87086; 87154; 87185; 87205; 93005; 96361; 96374; 97116; 97162; 97165; 97530; 97535; 99222; 99284; 99291; C9290; J0134; J0330; J0690; J1100; J1650; J2405; J2543; J2704; J3010

== ENCOUNTER 2024-09-26 11:37 | Inpatient (IN) | payer MEDICARE, OTHER, SELFPAY ==
[2024-09-20 14:39] VITALS: BMI 29.7
[2024-09-26] VITALS (12 sets, daily range): BP systolic 116–149; BP diastolic 64–85; PULSE 77–88; RESP 14–23; TEMP 36.4–37.7; O2SAT 94–97; BMI 29.7
--- NOTE | 2024-09-26 11:57 | ED.WOUNDLAC ---
HPI - Wound/Laceration General Chief Complaint: Wound/Laceration Stated Complaint: wound draining had surgery 09/16 Time Seen by Provider: 09/26/24 11:49 Source: patient Mode of arrival: Ambulatory History of Present Illness HPI narrative: Patient is a 78-year-old male. Had surgery performed within the past 2 weeks. Had a bowel resection. Has a midline surgical incision. States things have been going well. Having normal bowel movements. Urinating without difficulty. No abdominal pain. He states that yesterday started noticing some redness around the incision site and then earlier today noticed drainage from the incision site. He contacted the General surgery Department who advised that he come to the emergency department for further evaluation. Related Data Home Medications Medication Instructions Recorded Confirmed lisinopril 5 mg tablet 5 mg PO DAILY 09/16/24 09/16/24 Previous Rx's Medication Instructions Recorded acetaminophen 325 mg capsule 650 mg (2 x 325 mg) PO QID PRN 09/20/24 (Tylenol) pain #60 caps ibuprofen 200 mg tablet 400 mg (2 x 200 mg) PO Q6H #60 tabs 09/20/24 Allergies Allergy/AdvReac Type Severity Reaction Status Date / Time No Known Drug Allergies Allergy Verified 09/26/24 16:07 Review of Systems Review of Systems Narrative: See HPI Patient History Medical History HTN (hypertension) Surgical History (Updated 09/16/24 @ 18:25 by Jason Feldman MD) H/O umbilical hernia repair Social History household members: spouse Smoking Status: Former smoker 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 Surgical georgie are in place. There is what appears to be serosanguineous drainage from the inferior portion of this incision. There is surrounding erythema throughout the incision. Course Orders Ordered: ED Orders 09/26/24 12:10 Complete Blood Count AUTO DIFF Stat Comprehensive Metabolic Panel Stat Lactate (Lactic Acid) Stat Lipase Stat 09/26/24 13:38 CT abdomen pelvis w con Stat 09/26/24 13:43 Urinalysis and Microscopic Stat 09/26/24 14:57 Consult to General Surgery Stat Lactated Ringer's (Lactated Ringers) 1,000 mls @ 42 mls/hr IV NOW ONE Stop: 09/27/24 16:05 Last Admin: 09/26/24 16:18 Dose: 42 mls/hr Documented By: MIKIE Discontinued Medications Piperacillin Sod/Tazobactam (Sod 4.5 gm/ Sodium Chloride) 100 mls @ 200 mls/hr IV NOW ONE Stop: 09/26/24 15:24 Last Infusion: 09/26/24 16:00 Dose: 200 mls/hr Documented By: Admin: 09/26/24 15:51 Dose: 200 mls/hr Documented By: ADRY Vital Signs Vital signs: Vital Signs - 8 hr 09/26/24 11:42 Temperature 98.7 F Pulse Rate 88 Respiratory Rate 16 Blood Pressure 135/75 Pulse Oximetry 97 Oxygen Delivery Method Room Air MDM - Wound/Laceration Lab Data Attestation: I reviewed the patient's lab results. 09/26/24 12:10 09/26/24 12:10 Labs: Lab Results 09/26/24 09/26/24 Range/Units 12: 13:43 WBC 12.4 H (4.5-11.0) X10^3/uL RBC 3.73 L (4.5-5.9) X10^6/uL Hgb 11.3 L (13.5-17.5) g/dL Hct 33.7 L (41-53) % MCV 90.4 (80-100) fL MCH 30.2 (26-34) PG MCHC 33.4 (30-36) % RDW 13.2 (11.6-14.8) % Plt Count 384 (150-400) X10^3/uL Neut % (Auto) 81.4 H (50-75) % Lymph % (Auto) 6.6 L (25-40) % Sharkey % (Auto) 10.3 (3-14) % Eos % (Auto) 0.9 L (2-4) % Baso % (Auto) 0.8 (0-2) % Neut # (Auto) 81953 H (2864-7850) /uL Lymph # (Auto) 800 L (3421-0183) /uL Sharkey # (Auto) 1300 H (0-900) /uL Eos # (Auto) 100 (0-450) /uL Baso # (Auto) 100 (0-100) /uL Sodium 129 L (137-145) mmol/L Potassium 4.2 (3.4-5.1) mmol/L Chloride 94 L (98-107) mmol/L Carbon Dioxide 30 (22-32) mmol/L BUN 12 (9-20) mg/dL Creatinine 0.57 L (0.66-1.25) mg/dL Estimated GFR > 60 (>60) mL/min BUN/Creatinine Ratio 21.1 (6-22) Glucose 130 H (80-110) mg/dL Lactate 0.8 (0.7-2.1) mmol/L Calcium 8.9 (8.4-10.2) mg/dL Total Bilirubin 0.4 (0.2-1.3) mg/dL AST 24 (17-59) IU/L ALT 20 (<50) IU/L Alkaline Phosphatase 69 (38-126) U/L Total Protein 6.6 (6.3-8.2) g/dL Albumin 3.6 (3.5-5.0) g/dL Globulin 3.0 (1.7-4.1) g/dL Albumin/Globulin Ratio 1.2 (1.0-2.8) Lipase < 10 L (23-300) U/L Urine Color Yellow Urine Appearance Clear Urine pH 6.5 (4.5-8.0) Ur Specific [place] 1.010 (1.000-1.035) Urine Protein Negative (Negative) Urine Glucose (UA) Negative (Negative) g/dL Urine Ketones Negative (NEGATIVE) Urine Occult Blood 1+ H (Negative) Urine Nitrate Negative (Negative) Urine Bilirubin Negative (NEGATIVE) Urine Urobilinogen 0.2 (0.2) E.U./dL Ur Leukocyte Esterase Negative (NEGATIVE) Urine RBC 10-30/hpf H (0-5/HPF) Urine WBC 1-5/hpf (0-5/HPF) Ur Squamous Epith Cells 1-5 /hpf (0-5/HPF) Urine Bacteria Occasional (0-1) D (None) Ur Culture Indicated? Cult not indicated Vol Urine Centrifuged 10ml (spun) Imaging Data CT scan - abdomen/pelvis: Radiologist's Impression: PROCEDURE: CT ABDOMEN PELVIS W CON INDICATIONS: Recent bowel resection, cellulitis with drainage eval for abcess TECHNIQUE: After the administration of intravenous contrast, axial sections acquired from the lung bases to the pubic symphysis. Coronal and sagittal reformats were performed. For radiation dose reduction, the following was used: automated exposure control, adjustment of mA and/or kV according to patient size. COMPARISON: [facility], CT, CT ABDOMEN PELVIS W CON, 09/16/2024, 16:20. FINDINGS: Image quality: Diagnostic. Lower Chest: No significant findings. ABDOMEN: Liver: No solid mass. Gallbladder: No radiopaque gallstones or wall thickening. Biliary ducts: No biliary dilation. Pancreas: No ductal dilation. Spleen: Size is within normal limits. Adrenal Glands: No adrenal nodules. Kidneys and Ureters: No hydronephrosis. No solid mass. No complex renal cystic lesion which requires follow up. Stomach and Bowel: Significant improvement in the appearance of the right lower quadrant status post bowel resection. There is expected inflammatory change in the adjacent fat. No free air or abscess. Midline anterior skin georgie are present. Beneath the skin georgie in the subcutaneous fat is ill-defined fluid and air, potentially representing early abscess formation. This is in the subcutaneous tissues. There is rectus diastasis with associated herniated ventral fat. Peritoneum: No abnormal intraperitoneal fluid. No free air. Right lower quadrant inflammatory change. Ventral Wall: Vertical midline skin georgie. Apparent early associated abscess in the subcutaneous fat. The Abdominal Nodes: No retroperitoneal or mesenteric adenopathy by size criteria. Vessels: Aorta and inferior vena cava are normal in size. PELVIS: Pelvic Organs: Unremarkable. Bladder: No bladder wall thickening, accounting for underdistention. Pelvic Nodes: No enlarged lymph nodes. Miscellaneous: No inguinal hernias are seen. Bones: No aggressive osseous abnormality. IMPRESSION: 1. Interval bowel resection, right lower quadrant. Expected postoperative appearance in this location. No acute intraperitoneal process. 2. Midline ventral vertical skin georgie with likely early subcutaneous abscess. Rectus diastasis with herniated fat. MDM Narrative Medical decision making narrative: I discussed the case with Dr. Braden who evaluated the patient here in the emergency department. Patient was no abdominal tenderness but has obvious redness/inflammation and drainage from his wound. CT scan concern about a developing abscess. Dr. Braden evaluated the patient here in the emergency department. Plan is to take to the operating room for further exploration. Initially there was no recommendation for antibiotics however now that the patient was going to the operating room will prescribe Zosyn. Patient was aware of plan. Discharge Plan Departure Patient Disposition: Admitted to Surgery Clinical Impression: Postoperative infection Admit Date/Time: 09/26/24 15:27 Admit Provider: Rodolfo Braden
[2024-09-26 12:18] LABS: Add Manual Diff / Slide Review NO; Basophils Absolute Auto 100 /uL (0-100); Basophils Percent Auto 0.8 % (0-2); Eosinophils Absolute Auto 100 /uL (0-450); Eosinophils Percent Auto 0.9 % (2-4); Hematocrit 33.7 % (41-53); Hemoglobin 11.3 g/dL (13.5-17.5); Lymphocytes Absolute Auto 800 /uL (1100-4500); Lymphocytes Percent Auto 6.6 % (25-40); Mean Corpuscular HGB Conc 33.4 % (30-36); Mean Corpuscular Hemoglobin 30.2 PG (26-34); Mean Corpuscular Volume 90.4 fL (80-100); Monocytes Absolute Auto 1300 /uL (0-900); Monocytes Percent Auto 10.3 % (3-14); Neutrophils Absolute Auto 10100 /uL (1500-7000); Neutrophils Percent Auto 81.4 % (50-75); Platelet Count 384 X10^3/uL (150-400); Red Blood Cell Count 3.73 X10^6/uL (4.5-5.9); Red Cell Distribution Width 13.2 % (11.6-14.8); White Blood Cell Count 12.4 X10^3/uL (4.5-11.0)
[2024-09-26 12:31] LABS: Alanine Aminotransferase 20 IU/L (<50); Albumin 3.6 g/dL (3.5-5.0); Albumin Globulin Ratio 1.2 (1.0-2.8); Alkaline Phosphatase 69 U/L (38-126); Aspartate Aminotransferase 24 IU/L (17-59); BUN Creatinine Ratio 21.1 (6-22); Bilirubin Total 0.4 mg/dL (0.2-1.3); Blood Urea Nitrogen 12 mg/dL (9-20); Calcium 8.9 mg/dL (8.4-10.2); Carbon Dioxide 30 mmol/L (22-32); Chloride 94 mmol/L (98-107); Estimated Glomerular Filt Rate > 60 mL/min (>60); Glucose 130 mg/dL (80-110); HEMOLYSIS 24 (0-50); Lactate (Lactic Acid) 0.8 mmol/L (0.7-2.1); Potassium 4.2 mmol/L (3.4-5.1); Sodium 129 mmol/L (137-145); Total Protein 6.6 g/dL (6.3-8.2)
[2024-09-26 12:32] LABS: Lipase < 10 U/L (23-300)
--- NOTE | 2024-09-26 13:38 | DI.CT.S_ITS ---
PROCEDURE: CT ABDOMEN PELVIS W CON INDICATIONS: Recent bowel resection, cellulitis with drainage eval for abcess TECHNIQUE: After the administration of intravenous contrast, axial sections acquired from the lung bases to the pubic symphysis. Coronal and sagittal reformats were performed. For radiation dose reduction, the following was used: automated exposure control, adjustment of mA and/or kV according to patient size. COMPARISON: [facility], CT, CT ABDOMEN PELVIS W CON, 09/16/2024, 16:20. FINDINGS: Image quality: Diagnostic. Lower Chest: No significant findings. ABDOMEN: Liver: No solid mass. Gallbladder: No radiopaque gallstones or wall thickening. Biliary ducts: No biliary dilation. Pancreas: No ductal dilation. Spleen: Size is within normal limits. Adrenal Glands: No adrenal nodules. Kidneys and Ureters: No hydronephrosis. No solid mass. No complex renal cystic lesion which requires follow up. Stomach and Bowel: Significant improvement in the appearance of the right lower quadrant status post bowel resection. There is expected inflammatory change in the adjacent fat. No free air or abscess. Midline anterior skin georgie are present. Beneath the skin georgie in the subcutaneous fat is ill-defined fluid and air, potentially representing early abscess formation. This is in the subcutaneous tissues. There is rectus diastasis with associated herniated ventral fat. Peritoneum: No abnormal intraperitoneal fluid. No free air. Right lower quadrant inflammatory change. Ventral Wall: Vertical midline skin georgie. Apparent early associated abscess in the subcutaneous fat. The Abdominal Nodes: No retroperitoneal or mesenteric adenopathy by size criteria. Vessels: Aorta and inferior vena cava are normal in size. PELVIS: Pelvic Organs: Unremarkable. Bladder: No bladder wall thickening, accounting for underdistention. Pelvic Nodes: No enlarged lymph nodes. Miscellaneous: No inguinal hernias are seen. Bones: No aggressive osseous abnormality. IMPRESSION: 1. Interval bowel resection, right lower quadrant. Expected postoperative appearance in this location. No acute intraperitoneal process. 2. Midline ventral vertical skin georgie with likely early subcutaneous abscess. Rectus diastasis with herniated fat. Dictated by: Jc Juan M.D. on 09/26/2024 at 14:18 Approved by: Jc Juan M.D. on 09/26/2024 at 14:22
[2024-09-26 14:03] LABS: Appearance Urine UA CLEAR; Bilirubin Urine UA NEGATIVE (NEGATIVE); Color Urine UA YELLOW; Glucose Urine UA NEGATIVE (Negative); Ketones Urine UA NEGATIVE (NEGATIVE); Leukocyte Esterase Urine UA NEGATIVE (NEGATIVE); Nitrite Urine UA NEGATIVE (Negative); Occult Blood Urine UA 1+ (Negative); Protein Urine UA NEGATIVE (Negative); Urobilinogen Urine UA 0.2 E.U./dL (0.2); pH Urine UA 6.5 (4.5-8.0)
[2024-09-26 14:10] LABS: Bacteria Urine Occasional (0-1); Culture Indicated Urine Cult Not Indicated; RBC Urine 10-30/HPF (0-5/HPF); Squamous Epithelial Cell Urine 1-5 /HPF (0-5/HPF); Urine Volume 10mL (spun); WBC Urine 1-5/HPF (0-5/HPF)
[2024-09-26] MEDS: PIPERACILLIN/TAZO 4.5 GM in SODIUM CHLORIDE 0.9% 100 ML IV (15:51)
[2024-09-26] MEDS: LACTATED RINGERS 1,000 ML 42 ML IV (16:18)
--- NOTE | 2024-09-26 16:22 | P.HP_ITS ---
History of Present Illness History of Present Illness Date Patient Seen: 09/26/24 Time Patient Seen: 16:22 Chief complaint: wound draining had surgery 09/16 Narrative: Evan is a 78-year-old man who underwent a right hemicolectomy with Dr. 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 He had a low midline incision. Path is pending. He was discharged home after surgery and was doing well at home until yesterday his noticed increased swelling and redness around his incision. This morning he noticed some clear fluid draining from the incision. He came to the emergency department today and a CT scan was performed which shows what looks to me like fascial dehiscence containing some visceral fat. There does not appear to be any involve the bowel. The official radiological read reports ?rectus diastasis with herniated fat?. There is no evidence anastomotic leak. 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 Medications and Allergies Home Medications Medication Instructions Recorded Confirmed Type lisinopril 5 mg tablet 5 mg PO DAILY 09/16/24 09/16/24 History acetaminophen 325 mg capsule 650 mg (2 x 325 mg) PO QID PRN 09/20/24 Rx (Tylenol) pain #60 caps ibuprofen 200 mg tablet 400 mg (2 x 200 mg) PO Q6H #60 tabs 09/20/24 Rx Allergies Allergy/AdvReac Type Severity Reaction Status Date / Time No Known Drug Allergies Allergy Verified 09/26/24 16:07 Exam Vital Signs (past 8 hours): - 09/26/24 11:42 09/26/24 15:34 09/26/24 15:35 Temperature 98.7 F Pulse Rate 88 80 Respiratory Rate 16 Blood Pressure 135/75 136/74 Pulse Oximetry 97 95 Oxygen Delivery Method Room Air 09/26/24 15:35 09/26/24 16:08 Temperature 99.8 F H Pulse Rate 79 82 Respiratory Rate 16 Blood Pressure 144/81 H Pulse Oximetry 95 96 Oxygen Delivery Method Room Air Room Air Oxygen Delivery Method Room Air Narrative Exam Narrative: Erythema around the low midline incision. I opened the lower third of the skin incision in the ER and palpated the fascia. There was a gush of thin, dark red fluid. The middle to upper third of the fascial closure felt like there was some herniated viscera coming through the closure Objective Labs 09/26/24 12:10 09/26/24 12:10 Labs: Laboratory Results - last 24 hr 09/26/24 09/26/24 12:10 13:43 WBC 12.4 H RBC 3.73 L Hgb 11.3 L Hct 33.7 L MCV 90.4 MCH 30.2 MCHC 33.4 RDW 13.2 Plt Count 384 Neut % (Auto) 81.4 H Lymph % (Auto) 6.6 L Iron % (Auto) 10.3 Eos % (Auto) 0.9 L Baso % (Auto) 0.8 Neut # (Auto) 56641 H Lymph # (Auto) 800 L Iron # (Auto) 1300 H Eos # (Auto) 100 Baso # (Auto) 100 Sodium 129 L Potassium 4.2 Chloride 94 L Carbon Dioxide 30 BUN 12 Creatinine 0.57 L Estimated GFR > 60 BUN/Creatinine Ratio 21.1 Glucose 130 H Lactate 0.8 Calcium 8.9 Total Bilirubin 0.4 AST 24 ALT 20 Alkaline Phosphatase 69 Total Protein 6.6 Albumin 3.6 Globulin 3.0 Albumin/Globulin Ratio 1.2 Lipase < 10 L Urine Color Yellow Urine Appearance Clear Urine pH 6.5 Ur Specific [place] 1.010 Urine Protein Negative Urine Glucose (UA) Negative Urine Ketones Negative Urine Occult Blood 1+ H Urine Nitrate Negative Urine Bilirubin Negative Urine Urobilinogen 0.2 Ur Leukocyte Esterase Negative Urine RBC 10-30/hpf H Urine WBC 1-5/hpf Ur Squamous Epith Cells 1-5 /hpf Urine Bacteria Occasional (0-1) D Ur Culture Indicated? Cult not indicated Vol Urine Centrifuged 10ml (spun) Assessment & Plan Assessment and plan (1) Dehiscence of fascia: Status: Acute Plan I suspect fascial dehiscence containing a tongue of visceral fat or omentum. I recommended we proceed to the operating room for full wound exploration and if a fascial dehiscence is confirmed I would explore the abdomen and closed the fascia. Zosyn has been ordered. Time-Based Coding :: [TOTAL MINUTES] spent with patient and on the chart (including review of chart, obtaining history, exam, reviewing outside data, placing orders, documenting exam and treatment plan, and counseling patient) on [DATE].
--- NOTE | 2024-09-26 16:55 | SUR.OPER ---
Supine on padded OR bed, head on pillow, arms secured on padded arm boards at <90 degrees abduction, legs uncrossed, safety belt at thigh, tape over blanket over lower legs.
--- NOTE | 2024-09-26 17:51 | PM.OP.1 ---
Operative Date/Time/Diagnoses Date of procedure: 09/26/24 Time of procedure: 17:51 Pre-op diagnosis: Dehiscence of abdominal wound Post-op diagnosis: same Procedure & Clinicians Procedure: Wound exploration Exploratory laparotomy Closure of abdominal wound Same procedure as scheduled: Yes Surgeon: Rodolfo Braden Click Yes if Unassisted: Yes Anesthesia Type: General Operative Notes Findings: 3-4 cm fascial defect containing a tongue of viable omentum Procedure in detail: The patient was given a dose of zosyn. He was brought to the operating room. General anesthesia was induced. The remainder of the georgie were removed up to the top of the umbilicus. The abdomen was prepped with betadine solution. A time-out was performed. The skin incision was sharply divided with a scalpel up to the top of the umbilicus. In the middle of the incision there was a 3-4 cm fascial defect containing an incarcerated tongue of omentum. There was loose looped PDS suture above and below the defect. There appeared to be an intact knot below the defect. The loose suture was cut. The tongue of omentum was inspected and no ischemia was found. There was no bowel involved. A cursory inspection of the abdomen demonstrated healthy loops of bowel and no turbid fluid. Marcaine was injected into the fascial layers. The fascia was then closed with a running 0 PDS reinforced with multiple 0 vicryl internal retention sutures. The subcutaenous wound was irrigated and packed with kerlex gauze. The patient was awakended and brought to recovery. EBL: 10 mL Post-operative Condition: stable Disposition: PACU
[2024-09-26] MEDS: LACTATED RINGERS 1,000 ML 100 ML IV (19:48)
[2024-09-26] MEDS: HYDROCODONE/ACET 5/325 TABLET 2 TAB PO (21:54)
[2024-09-27 01:30] VITALS: BP 130/72; PULSE 81; TEMP 36.4; O2SAT 97
[2024-09-27] MEDS: LACTATED RINGERS 1,000 ML 100 ML IV (04:30)
[2024-09-27] MEDS: HYDROCODONE/ACET 5/325 TABLET 2 TAB PO ×2 (04:42→12:08)
[2024-09-27 06:46] LABS: Add Manual Diff / Slide Review NO; Basophils Absolute Auto 100 /uL (0-100); Basophils Percent Auto 0.4 % (0-2); Eosinophils Absolute Auto 200 /uL (0-450); Eosinophils Percent Auto 1.6 % (2-4); Hematocrit 31.6 % (41-53); Hemoglobin 10.7 g/dL (13.5-17.5); Lymphocytes Absolute Auto 1100 /uL (1100-4500); Lymphocytes Percent Auto 8.6 % (25-40); Mean Corpuscular Hemoglobin 30.6 PG (26-34); Mean Corpuscular Volume 90.1 fL (80-100); Monocytes Absolute Auto 1600 /uL (0-900); Monocytes Percent Auto 13.3 % (3-14); Neutrophils Absolute Auto 9400 /uL (1500-7000); Neutrophils Percent Auto 76.1 % (50-75); Platelet Count 356 X10^3/uL (150-400); Red Cell Distribution Width 13.3 % (11.6-14.8); White Blood Cell Count 12.3 X10^3/uL (4.5-11.0)
[2024-09-27 06:54] LABS: BUN Creatinine Ratio 14.1 (6-22); Blood Urea Nitrogen 10 mg/dL (9-20); Calcium 8.6 mg/dL (8.4-10.2); Carbon Dioxide 28 mmol/L (22-32); Chloride 93 mmol/L (98-107); Estimated Glomerular Filt Rate > 60 mL/min (>60); Glucose 102 mg/dL (80-110); HEMOLYSIS < 15 (0-50); Potassium 4.2 mmol/L (3.4-5.1); Sodium 128 mmol/L (137-145)
[2024-09-27 07:24] VITALS: PULSE 75; O2SAT 95
[2024-09-27] MEDS: lisinopriL 5 MG TABLET PO (08:22)
[2024-09-27 08:33] VITALS: BP 125/65; PULSE 76; RESP 16; TEMP 36.4; O2SAT 97
--- NOTE | 2024-09-27 10:21 | PC.NURSE ---
Addendum entered by Margret Rosen R.N. 09/27/24 19:03: Patient has a wound vac on his abdominal incision. He tolerated this well and dressing is cdi, with abdominal binder in place. Vicodin earlier for discomfort. Original Note: Patient is alert and oriented x4, his incision is partially open with a dressing and abdominal binder in place. He will be working with physical therapy and denies pain at this time.
--- NOTE | 2024-09-27 13:41 | CM.DANOTE ---
Addendum entered by SHEELA Crawford 09/27/24 14:20: ADD: SW met bedside with pt and spouse again and provided Sig HH brochure and discussed HH RN again and wound vac and Wound clinic and they are agreeable to all and Ness from [facility] called pt and spouse while SW in room and updated and answered their questions. BF Addendum entered by SHEELA Crawford 09/27/24 14:12: ADD: Sig HH confirms that they can accept this referral, holding a spot right now for Fri this week 09/30/24. BF Original Note: Patient is a 78 yo male who was a Re-admit INPT Status on 09/26/24 for Post Op complication. Pt has [employer] for insurance and his PCP is Dr. Cody Velásquez at the [facility]. EMR was reviewed. Per Surgeon, pt with recent admission 09/16-09/20/24 for perf bowel and abscess and was taken to OR and pathology still pending to R/O possible cancer. Pt now with facial dehis and needed surgical intervention again and now will likely need home wound vac, HH RN, and outpt wound clinic followup. 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 Pt's PCP is at the [facility]. Pt and spouse state they are in the process of completing their Living Will/POA pwk and this surgery has motivated them to complete these documents. Pt denies any hx of HH or SNF and was cleared for home with spouse assist and FWW at last discharge a few days ago. Pt and spouse open to HH RN for wound vac/wound care and provided HH Choice list and no preference. Sig HH referral made based on Vendor Calendar and F2F completed but not sent yet. SW called [facility] and made new referral and faxed clinicals to review and they will call pt and spouse in room and likely can get him on the schedule for 10/03/24. DANIELA called Jonathan at [facility] and updated on likely need for home wound vac and CC Sera kindly faxed clinicals to review and they will begin working on preparing the info for Medicare auth for likely d/c in a couple days. SW updated Surgeon Dr. Feldman about need for Auth Form to be completed and Dr. Feldman requested to place on pt's chart as he will return bedside around [address] vac and he will complete the form at that time. Form placed on chart and updated RN. Plan: SW to follow closely with Jonathan at [facility] to confirm information obtained to complete home vac auth and delivery and Sig HH RN and [facility] at d/c. SHEELA Crawford Discharge Planning/Care Management CM Discharge Assessment Start: 09/27/24 13:39 Freq: Status: Active Protocol: Document 09/27/24 13:39 BF (Rec: 09/27/24 13:41 BF [id number]) Discharge Planning Assessment Assigned Equipment Lead SHEELA Quiñones DPOA/Assigned Designee Name spouse Lauren Contact Information [phone] Advance Directives? No Advance Directives on File No History Provided By Patient,Significant Other, Medical Record Has Patient been admitted in last 30 Yes days? Comment just discharged 09/20/24 for perf bowel and discharged home with spouse Prior Living Arrangements House Household Members spouse Type of transporation used prior to Drives own vehicle admit Independent with ADL's Yes Is patient alert and oriented? Yes Caregiver for Another No DME Already Rented / Owned FWW / Walker Patient/Family Preference Home with Home Health Comment HH RN for wound care, wound vac, and outpt wound clinic Barriers to Discharge No Discharge Plan Home with Home Health Community [facility] Home Health Nurse Transportation Arrangement Spouse confirms she can transport at d/c Referrals Initiated Home Health,Other Additional Comment [facility] wound vac and HH and [facility] If patient plan is home with home health Yes : Has signed face to face form been completed? Medicare Choice List Provided Yes Medicare choice list reviewed on patient,family electronic tablet with SNF/HH Preference Sig HH Whiteboard Updated in Patient Room with Yes name and ext. # of Equipment Lead Review Status In Process Please Provide Date Initial DC 09/27/24 Assessment Was Performed Next Review Type Continued Stay Review
--- NOTE | 2024-09-27 14:58 | PM.PNPO.1 ---
Subjective Subjective Date Patient Seen: 09/27/24 Time Patient Seen: 18:02 Interval history: No acute events POD1 fascial dehiscence Exam Vital Signs (past 8 hours): - 09/27/24 07:24 09/27/24 08:33 Temperature 97.6 F Pulse Rate 75 76 Respiratory Rate 16 Blood Pressure 125/65 Pulse Oximetry 95 97 Oxygen Delivery Method Nasal Cannula Oxygen Flow Rate 2.5 2 Oxygen Delivery Method Nasal Cannula Oxygen Flow Rate 2 Narrative Exam Narrative: Gen-Adult man alert and oriented Abdomen-Lower midline incision. 12x 4 x 4 cm wound clean. Objective Labs 09/27/24 05:00 09/27/24 05:00 Labs: Laboratory Results - last 24 hr 09/27/24 05:00 WBC 12.3 H RBC 3.50 L Hgb 10.7 L Hct 31.6 L MCV 90.1 MCH 30.6 MCHC 34.0 RDW 13.3 Plt Count 356 Neut % (Auto) 76.1 H Lymph % (Auto) 8.6 L [place] % (Auto) 13.3 Eos % (Auto) 1.6 L Baso % (Auto) 0.4 Neut # (Auto) 9400 H Lymph # (Auto) 1100 [place] # (Auto) 1600 H Eos # (Auto) 200 Baso # (Auto) 100 Sodium 128 L Potassium 4.2 Chloride 93 L Carbon Dioxide 28 BUN 10 Creatinine 0.71 Estimated GFR > 60 BUN/Creatinine Ratio 14.1 Glucose 102 Calcium 8.6 PFSH Medical History HTN (hypertension) Surgical History (Updated 09/16/24 @ 18:25 by Jason Feldman MD) H/O umbilical hernia repair Social History household members: spouse Smoking Status: Former smoker alcohol intake: current 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 -Set up wound care and home health -SCDs and pLovenox -Discussed colon cancer diagnosis stage III referral to oncology at [facility] Deep [facility] Thrombosis/Pulmonary Embolism Present on Admission: No
--- NOTE | 2024-09-27 16:05 | PT.IIE ---
Surgery Performed Operation Date: 09/26/24 16:30 Actual Procedures p Abdominal Wound Exploration, Debridement and Closure(Not Applicable) - Rodolfo Braden MD Surgical History (Last Updated 09/16/24 @ 18:25 by Jason Feldman MD) H/O umbilical hernia repair Medical History (Last Reviewed 09/26/24 @ 11:59 by Dani Gutierrez DO) HTN (hypertension) Physical Therapy Inpatient Evaluation/Re-Eval M1 PT/OT-IP Prior Functional Status Start: 09/27/24 17:13 Freq: NEEDED Status: Active Protocol: Document 09/27/24 16:05 AB (Rec: 09/27/24 17:26 AB [id number]) Medical Review Prior Functional Status Medical History Reviewed Yes Communication able to make needs known Mobility and Gait pt s/p R hemicolectomy: : upon d/c: pt was modified independent with ambulation using FWW prior to R hemicolectomy: pt was independent with all mobilities and ambulation without AD and only uses a SPC for outdoor/uneven surface ambulation Social History Household Members spouse Living Arrangements House Number of Floors (Floors) One Floor Number of Stairs To Enter/Railing? no steps to enter Home Environment High Toilet,Walk in Shower Home Equipment Front Wheel Walker,Straight Cane,Shower Seat with Backrest M2 PT-IP Current Condition Start: 09/27/24 17:13 Freq: NEEDED Status: Active Protocol: Document 09/27/24 16:05 AB (Rec: 09/27/24 17:26 AB [id number]) Physical Therapy Current Condition Current Condition Evaluation Date 09/27/24 Treatment Diagnosis s/p ex-lap/abdominal wound exploration; difficulty in walking Onset Date 09/26/24 M3 PT-IP Subjective Start: 09/27/24 17:13 Freq: NEEDED Status: Active Protocol: Document 09/27/24 16:05 AB (Rec: 09/27/24 17:26 AB [id number]) Subjective Physical Therapy Visit Type Type Initial Evaluation Visit Start Time 16:05 Visit Stop Time 16:40 Number of BUSINESS INFORMATION CONSULTANT Visits 0 Physical Therapy Visit Comments Patient Comments agreeable to do PT Therapy Pain Assessment Pain When Pain Assessed At Rest Pain Present Pain Present Pain Reported Location Bilateral Lower Medial Abdomen Intensity 2 Scale Used Numeric (0 - 10) Pain Management Techniques Distraction,Modification of Treatment,Re-positioning, Timing of Activity with Medications M4 PT-IP Mobility and Gait Start: 09/27/24 17:13 Freq: NEEDED Status: Active Protocol: Document 09/27/24 16:05 AB (Rec: 09/27/24 17:26 AB [id number]) PT-Bed Mobility Assessment Rolling Type of Rolling Log Rolling Level of Assist Standby Assistance Supine to Sit Supine to Sit Standby Assistance Sit to Supine Sit to Supine Standby Assistance PT-Transfer Assessment Sit to and From Stand Sit to and from Stand Contact Guard Assistance,1 Person Assistance,Use of Upper Extremities Equipment Transfer Assistive Device Gait Belt,Front Wheeled Walker Orthotic/Prosthetic Devices or Brace: No Comments Mobility Comments checked with nurse and ok to see pt for PT and stated that pt can get up. checked with pt and pt stated that they are waiting for clearance for him to get up. informed pt that nurse stated that it is ok for him to get up and pt received PT eval order from the doctor . pt'd spouse in room with pt. obtained PLOF and home set up. reviewed abdominal precautions and log roll bed mobility. handout provided to pt. repositioned abdominal binder. BP: 137/68. pt completed log roll supine to sit SBA. pt is impulsive. cued to slow down. pt able to sit on EOB SBA. no c/o dizziness. completed sit to stand CGA and ambulated in room ~ 35 ft using fWW CGA. cued for safety. presents with an antalgic gait. pt wanting to just print manager place and tolerated ~ 5 min standing. pt requested to go back to bed . log roll sit to supine SBA. positioned pt in bed. call light and table placed within reach. Gait Assessment Gait Gait Assistance Required: Contact Guard Assist Distance (Feet) 35 Able to Maintain Weight Bearing Status Yes During Gait Assistive Devices Assistive Device Gait Belt,Front Wheeled Walker Orthotic/Prosthetic Devices or Brace: No Gait Deviations General Gait Pattern Antalgic,Decreased Stride Length,Decreased Feet Clearance Factors Limiting Gait Function Factors Limiting Gait Function Decreased Activity Tolerance, Decreased Strength,Limited Range of Motion,Pain,Poor Balance,Poor Safety Awareness PT-Balance Assessment Sitting Balance and Reactions Static Sitting Balance Ability Normal Dynamic Sitting Balance Ability Good Standing Balance and Reactions Static Standing Balance Ability Good Dynamic Standing Balance Ability Fair Device Used FWW M5 PT-IP Objective Assessments Start: 09/27/24 17:13 Freq: NEEDED Status: Active Protocol: Document 09/27/24 16:05 AB (Rec: 09/27/24 17:26 AB [id number]) Orientation Orientation/Cognition Level of Alertness Alert Language Function Ability Hard of Hearing Safety Awareness Decreased Safety Awareness Memory Description Short Term Impaired Gross Range of Motion Lower Extremity ROM Assessment Within Functional Limits Strength Lower Extremity Strength Assessment Within Functional Limits Sensation Assessment Sensation Gross Sensation WNL Muscle Tone Muscle Tone WNL Yes M6 PT-IP Treatment Start: 09/27/24 17:13 Freq: NEEDED Status: Active Protocol: Document 09/27/24 16:05 AB (Rec: 09/27/24 17:26 AB [id number]) Physical Therapy Treatment Education Education Provided Precautions,Weight Bearing Status,Post-Op Packet,Safety M7 PT-IP Assessment and Plan Start: 09/27/24 17:13 Freq: NEEDED Status: Active Protocol: Document 09/27/24 16:05 AB (Rec: 09/27/24 17:26 AB [id number]) PT Summary Assessment and Plan Potential Rehabilitation Potential Fair Status of Condition at Evaluation Evolving Summary Impairments Pain,ROM,Strength,Balance, Coordination,Sensation,Tone, Cognition,Bed Mobility, Transfers,Gait,Activity Tolerance Assessment Summary pt is a 78 y/o M with recent R hemicolectomy 09/16/24 and pt with dehiscence of fascia s/p ex-lap and wound exploration POD 1. pt with abdominal precautions. pt requiring SBA with bed mobility and CGA for ambulation using fWW. pt lives with spouse and can assist pt if needed. will continue to assess progress. Goals Bed Mobility Goal Independent Transfer Goal Independent,Front Wheeled Walker Gait Goal Independent,Front Wheel Walker Gait Distance 300 Days to Meet Goals 10 Frequency of Treatment Frequency Of Treatment Once a Day Treatment Plan Physical Therapy Treatment Plan Bed Mobility Training,Transfer Training,Gait Training, Therapeutic Exercise,Balance Retraining,Post Op Education, Discharge Planning,Hot or Cold Pack,Neuromuscular Re-ed, Coordination Retraining,Manual Therapy Precautions Abdominal Surgery Precautions Log Roll,Lifting Restrictions, Gait Belt above Incisional Area Recommendations To Nursing Amount of Assist Needed 1 Person Assist Discharge Recommendations PT Discharge Recommendations Home with Assistance Transportation Needs at Discharge Private Vehicle
[2024-09-27] MEDS: LIDOCAINE 5% OINT 35 GM 1 APPLIC TOP (17:59)
[2024-09-27 20:00] VITALS: BP 150/81; PULSE 84; RESP 16; TEMP 37.1; O2SAT 96
[2024-09-28] MEDS: ACETAMINOPHEN 325 MG TABLET 650 MG PO (01:33)
[2024-09-28 07:30] VITALS: BP 150/82; PULSE 76; RESP 17; TEMP 36.8; O2SAT 98
[2024-09-28 09:26] VITALS: BP 150/82; PULSE 76
[2024-09-28] MEDS: lisinopriL 5 MG TABLET PO (09:26)
[2024-09-28] MEDS: SODIUM CHLORIDE 0.9% FLUSH 10 ML IV (09:26)
--- NOTE | 2024-09-28 11:24 | CM.DPNOTE ---
Addendum entered by SHEELA Patel 09/28/24 16:22: ADD: Discharge home. Wound vac at bedside. [facility] RN to see 09/30. Emailed DC packet to Lizzie at [facility] along with completed F2F and HH order. DC Summary not available at this time. Original Note: DCP Cont Reviewed chart. Emailed completed and signed wound vac insurance authorization form to: Jonathan Mcbride Patient Control Systems Designer Medical [employer] [facility] Mobile: Fax: Email: [email or web address] Patient's home wound vac has been pre-authorized and will be delivered to bedside this afternoon. [facility] is holding a nursing start of care for Sunday 09/30. [facility] has an appt for patient Wednesday 10/03. Updated Dr Feldman who anticipates discharging patient home this afternoon. Met w/patient to review DCP; patient agreeable, however, had anticipated discharging tomorrow not today. Patient declines talking to this HEALTH CARE SOCIAL WORKER about discharge questions and concerns, patient would like to discuss with the discharging provider. Plan: Discharge home w/family, home wound vac via [place], [facility] RN, close outpatient follow up with [facility]. CM team following closely for coordination of discharge plan. PETER
[2024-09-28 12:13] VITALS: O2SAT 91
--- NOTE | 2024-09-28 13:45 | PT.IPTN ---
Current Diagnoses Disruption or dehiscence of closure of internal operation (surgical) wound of abdominal wall muscle or fascia, initial encounter (09/26/24) Surgery Performed Operation Date: 09/26/24 16:30 Actual Procedures p Abdominal Wound Exploration, Debridement and Closure(Not Applicable) - Rodolfo Braden MD Physical Therapy Treatment Note M2 PT-IP Current Condition Start: 09/27/24 17:13 Freq: NEEDED Status: Discharge Protocol: Document 09/27/24 16:05 AB (Rec: 09/27/24 17:26 AB [id number]) Physical Therapy Current Condition Current Condition Evaluation Date 09/27/24 Treatment Diagnosis s/p ex-lap/abdominal wound exploration; difficulty in walking Onset Date 09/26/24 M3 PT-IP Subjective Start: 09/27/24 17:13 Freq: NEEDED Status: Discharge Protocol: Document 09/28/24 13:45 AB (Rec: 09/28/24 15:42 AB [id number]) Subjective Physical Therapy Visit Type Type Treatment Note Visit Start Time 13:45 Visit Stop Time 13:55 Number of ENGINEER OPERATIONS AND MAINTENANCE Visits 0 M4 PT-IP Mobility and Gait Start: 09/27/24 17:13 Freq: NEEDED Status: Discharge Protocol: Document 09/27/24 16:05 AB (Rec: 09/27/24 17:26 AB [id number]) PT-Bed Mobility Assessment Rolling Type of Rolling Log Rolling Level of Assist Standby Assistance Supine to Sit Supine to Sit Standby Assistance Sit to Supine Sit to Supine Standby Assistance PT-Transfer Assessment Sit to and From Stand Sit to and from Stand Contact Guard Assistance,1 Person Assistance,Use of Upper Extremities Equipment Transfer Assistive Device Gait Belt,Front Wheeled Walker Orthotic/Prosthetic Devices or Brace: No Comments Mobility Comments checked with nurse and ok to see pt for PT and stated that pt can get up. checked with pt and pt stated that they are waiting for clearance for him to get up. informed pt that nurse stated that it is ok for him to get up and pt received PT eval order from the doctor . pt'd spouse in room with pt. obtained PLOF and home set up. reviewed abdominal precautions and log roll bed mobility. handout provided to pt. repositioned abdominal binder. BP: 137/68. pt completed log roll supine to sit SBA. pt is impulsive. cued to slow down. pt able to sit on EOB SBA. no c/o dizziness. completed sit to stand CGA and ambulated in room ~ 35 ft using fWW CGA. cued for safety. presents with an antalgic gait. 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 pt requested to go back to bed . log roll sit to supine SBA. positioned pt in bed. call light and table placed within reach. Gait Assessment Gait Gait Assistance Required: Contact Guard Assist Distance (Feet) 35 Able to Maintain Weight Bearing Status Yes During Gait Assistive Devices Assistive Device Gait Belt,Front Wheeled Walker Orthotic/Prosthetic Devices or Brace: No Gait Deviations General Gait Pattern Antalgic,Decreased Stride Length,Decreased Feet Clearance Factors Limiting Gait Function Factors Limiting Gait Function Decreased Activity Tolerance, Decreased Strength,Limited Range of Motion,Pain,Poor Balance,Poor Safety Awareness PT-Balance Assessment Sitting Balance and Reactions Static Sitting Balance Ability Normal Dynamic Sitting Balance Ability Good Standing Balance and Reactions Static Standing Balance Ability Good Dynamic Standing Balance Ability Fair Device Used FWW M5 PT-IP Objective Assessments Start: 09/27/24 17:13 Freq: NEEDED Status: Discharge Protocol: Document 09/27/24 16:05 AB (Rec: 09/27/24 17:26 AB [id number]) Orientation Orientation/Cognition Level of Alertness Alert Language Function Ability Hard of Hearing Safety Awareness Decreased Safety Awareness Memory Description Short Term Impaired Gross Range of Motion Lower Extremity ROM Assessment Within Functional Limits Strength Lower Extremity Strength Assessment Within Functional Limits Sensation Assessment Sensation Gross Sensation WNL Muscle Tone Muscle Tone WNL Yes M6 PT-IP Treatment Start: 09/27/24 17:13 Freq: NEEDED Status: Discharge Protocol: Document 09/28/24 13:45 AB (Rec: 09/28/24 15:42 AB [id number]) Physical Therapy Treatment Education Education Provided Safety Other Treatments Other Treatment Performed checked on pt and pt sitting on the chair. spouse in room. pt stated that he is going home today and does not want to do PT. spouse concerned about log roll bed mobility. educated pt and spouse on how to do log roll bed mobility. educated on safety and techniques. asked pt if he want to practice log roll and refused. pt and spouse understood education provided for log roll techniques. also referred them to handout provided for precautions and log roll techniques. M7 PT-IP Assessment and Plan Start: 09/27/24 17:13 Freq: NEEDED Status: Discharge Protocol: Document 12/11/24 13:45 AB (Rec: 09/28/24 15:42 AB [id number]) PT Summary Assessment and Plan Potential Rehabilitation Potential Fair Summary Assessment Summary pt refused to mobilize today and stated that he is going home. spouse concerned about log roll bed mobility techniques. provided pt and spouse education for log roll bed mobility techniques, precautions and safety. pt plans to go home and spouse to assist. Frequency of Treatment Frequency Of Treatment Once a Day Treatment Plan Physical Therapy Treatment Plan Bed Mobility Training,Transfer Training,Gait Training, Therapeutic Exercise,Balance Retraining,Post Op Education, Discharge Planning,Hot or Cold Pack,Neuromuscular Re-ed, Coordination Retraining,Manual Therapy Precautions Abdominal Surgery Precautions Log Roll,Lifting Restrictions, Gait Belt above Incisional Area Recommendations To Nursing Amount of Assist Needed 1 Person Assist Discharge Recommendations PT Discharge Recommendations Home with Assistance Transportation Needs at Discharge Private Vehicle
--- NOTE | 2024-09-28 15:16 | PC.NURSE ---
Day shift: Discharge information gone over with patient and patient's spouse. All questions answered, patient stated understanding. Extensive wound vac teaching done, confirmed that HH set up to see patient Thursday. PIV removed prior to discharge. All belongings with patient. This RN escorted patient via wheelchair to exit.
--- NOTE | 2024-09-30 08:59 | PM.DS.1 ---
History of Present Illness History of Present Illness Date Patient Seen: 09/28/24 Time Patient Seen: 09:00 Chief complaint: wound draining had surgery 09/16 Narrative: Mr. Plummer is a 78-year-old man who underwent a emergency right hemicolectomy for a perforated colon cancer 09/16 2024. He did well postoperatively was discharged home. He presented to the emergency department 09/26 with wound drainage from the abdomen imaging demonstrated partial fascial dehiscence and omentum within the wound. No findings of intra-abdominal complication. Discharge Providers Provider Date of admission: 09/26/24 15:27 Discharge Date: 09/28/24 Primary care physician: Doctor Nicole MD Consults: 09/26/24 14:57 Consult to General Surgery Stat Comment: Consulting Provider: Rodolfo Braden Reason for consultation: Postop cellulitis Has provider been notified: Yes 09/27/24 09:43 Consult to Physical Therapy Evaluate & Treat Comment: Physician Instructions: Evaluate and Treat 09/28/24 16:18 Consult to Home Health Routine Comment: Reason For Exam: RN upon discharge Discharge provider: Jason Feldman MD Summary Hospital Course Discharge Diagnosis: Fascial dehiscence Hospital Course: Patient was admitted 09/26/2024 for fascial dehiscence following an emergency colectomy 2 weeks prior. He was taken to the operating room 09/27 for a wound exploration which demonstrated a 3 cm fascial dehiscence containing a small portion of omentum. This was repaired and the wound was packed with gauze. The following day the wound was examined found to be clean and a wound VAC was placed. Exam Vital Signs (past 8 hours): Oxygen Delivery Method Nasal Cannula Oxygen Flow Rate 0 Narrative Exam Narrative: General adult man alert oriented no acute distress Abdomen soft minimally tender to palpation. 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 -Walking only for exercise for 1 month -Home health wound vac change Sunday 09/30 Discharge orders & Medications Prescriptions: New ibuprofen 200 mg tablet 400 mg PO Q6H Qty: 60 0RF docusate sodium [Colace] 100 mg capsule 100 mg PO BID Qty: 30 0RF Continued lisinopril 5 mg tablet 5 mg PO DAILY ibuprofen 200 mg tablet 400 mg PO Q6H Qty: 60 0RF acetaminophen [Tylenol] 325 mg capsule 650 mg PO QID PRN (Reason: pain) Qty: 60 0RF Follow up/Referrals: Jason Feldman MD [Physician] - 10/06/24 4:00 pm (appt:10/06 @ 3:45 check in for a 4:[address] Feldman ) Diet/Activity/Treatments Diet: Regular Skin/Wound/Dressing Care Report to your healthcare provider any signs of infection, such as:: chills, fever, increased pain, unusual drainage and unusual redness Visit Report/Discharge Packet Instructions: DI for Wound Dehiscence, How to Prevent Falls Stand Alone Forms: Patient Portal/API, Stroke Signs & Symptoms Discharge Data Primary Care Provider: Miscellaneous,Doctor Quality [facility] Deep Vein Thrombosis/Pulmonary Embolism Present on Admission: No
== END 2024-09-28 15:12 | disposition home health service (06) | DRG 908 ==
LOC: ED 15:24 → AC 15:37
PROVIDERS: Admitting Provider Surgery; Emergency Provider Emergency Medicine; Referring Provider Emergency Medicine; Visit Provider Surgery
PROC: 0JQ80ZZ Repair Abdomen Subcutaneous Tissue and Fascia, Open Approach (ICD-10-PCS; principal; 2024-09-26 16:30)
DX: T81.321A Disruption or dehiscence of closure of internal operation (surgical) wound of abdominal wall muscle or fascia, initial encounter (principal); C18.7 Malignant neoplasm of sigmoid colon; I10 Essential (primary) hypertension; Y83.8 Other surgical procedures as the cause of abnormal reaction of the patient, or of later complication, without mention of misadventure at the time of the procedure; Z87.891 Personal history of nicotine dependence
CPT/HCPCS: 13160; 36415; 74177; 80048; 80053; 81001; 81003; 83605; 83690; 85025; 94762; 96374; 97161; 97530; 99284; 99285; J1171; J2405; J2543; J2704; J3010; Q9967

== ENCOUNTER → 2024-10-03 11:02 | Outpatient (CLI) | payer MEDICARE, OTHER, SELFPAY ==
[2024-09-26 15:43] VITALS: BMI 29.7
== END ==
LOC: WC 10-10 11:03
PROVIDERS: Referring Provider Surgery; Visit Provider Surgery
DX: T81.89XA Other complications of procedures, not elsewhere classified, initial encounter (principal); L98.8 Other specified disorders of the skin and subcutaneous tissue; S31.109A Unspecified open wound of abdominal wall, unspecified quadrant without penetration into peritoneal cavity, initial encounter
CPT/HCPCS: 11042; 11045; 97605; 99203; 99213

== ENCOUNTER → 2024-10-10 11:00 | Outpatient (CLI) | payer MEDICARE, OTHER, SELFPAY ==
[2024-09-26 15:43] VITALS: BMI 29.7
== END ==
LOC: WC 11:01
PROVIDERS: Referring Provider Surgery; Visit Provider Physician Assistant
DX: T81.89XA Other complications of procedures, not elsewhere classified, initial encounter (principal); L98.8 Other specified disorders of the skin and subcutaneous tissue; S31.109A Unspecified open wound of abdominal wall, unspecified quadrant without penetration into peritoneal cavity, initial encounter
CPT/HCPCS: 11042; 99213

== ENCOUNTER → 2024-10-18 15:14 | Outpatient (CLI) | payer MEDICARE, OTHER, SELFPAY ==
[2024-09-26 15:43] VITALS: BMI 29.7
== END ==
PROVIDERS: Referring Provider Surgery; Visit Provider Surgery
DX: T81.89XA Other complications of procedures, not elsewhere classified, initial encounter (principal); L98.8 Other specified disorders of the skin and subcutaneous tissue; S31.109A Unspecified open wound of abdominal wall, unspecified quadrant without penetration into peritoneal cavity, initial encounter; L53.9 Erythematous condition, unspecified
CPT/HCPCS: 11042

== ENCOUNTER → 2024-10-27 09:45 | Outpatient (CLI) | payer MEDICARE, OTHER, SELFPAY ==
[2024-09-26 15:43] VITALS: BMI 29.7
--- NOTE | 2024-10-27 | OV.WND_ITS ---
PROGRESS NOTE DETAILS PATIENT NAME: YAMILE TRIPLETT PATIENT NUMBER: [id number] CLINICIAN: ANIL URIAS R.N. PATIENT DATE OF : 1945 PHYSICIAN / PROFESSOR OF SOCIOLOGY: LEONARD MACHUCA PATIENT SUBJECTIVE CHIEF COMPLAINT THIS INFORMATION WAS OBTAINED FROM THE PATIENT. MY WOUND HAS BEEN BLEEDING MORE, AND IT'S ITCHY. GENERAL NOTES SURGICAL WOUND OF ABDOMEN. ALLERGIES NO KNOWN DRUG ALLERGIES HPI THIS INFORMATION WAS OBTAINED FROM THE PATIENT. THE FOLLOWING HPI ELEMENTS WERE DOCUMENTED FOR THE PATIENT'S WOUND: LOCATION: ABDOMEN DURATION: 09/26/24 CONTEXT: SURGICAL THE PATIENT IS A 79-YEAR-OLD MALE WHO RETURNS TODAY FOR FOLLOW UP OF A SURGICAL WOUND OF THE ABDOMEN. HE ORIGINALLY UNDERWENT AN OPEN RIGHT TAL COLECTOMY SEPTEMBER 16, 2024 FOR ADENOCARCINOMA INVOLVING THE BASE OF THE APPENDIX. ON SEPTEMBER 26, 2024 HE UNDERWENT SURGICAL WOUND EXPLORATION WITH CLOSURE OF FASCIA DEFECT. HE WAS DISCHARGED HOME SEPTEMBER 30, 2024 WITH A WOUND VAC ON THE SURGICAL ABDOMINAL WOUND. MOST RECENTLY HE HAS BEEN RECEIVING DRESSING CHANGES WITH [employer]. THE PATIENT HAS MISSED HIS LAST 2 APPOINTMENTS AND HAS CHANGED HIS DRESSING ONLY TWICE IN THE PAST 2 WEEKS. THE PATIENT DENIES HAVING ANY PAIN OR DISCOMFORT NOR HAS HE HAD ANY FEVER OR CHILLS. HIS APPETITE IS IMPROVED AND HE IS TAKING PROTEIN SUPPLEMENTS. HE IS NOT CURRENTLY ON ANY ANTIBIOTIC THERAPY. ON TODAY'S VISIT THE WOUND HAS IMPROVED IMPROVED MEASUREMENTS BUT DOES HAVE MORE HYPER GRANULAR TISSUE. THERE IS PERIWOUND FUNGAL RASH AND A SATELLITE ULCER. THE PATIENT HAS BEEN GETTING THE DRESSING WET IN THE SHOWER. LABS: 09/27/24: WBC 12.3, HEMOGLOBIN 10.7, HCT 31.6, SODIUM 128, ELECTROLYTES OTHERWISE BASICALLY NORMAL, GFR GREATER THAN 60 09/16/24: CULTURE GREW CLOSTRIDIUM CLOSTRIDIIFORME MEDICAL HISTORY THIS INFORMATION WAS OBTAINED FROM THE CHART, PATIENT. PATIENT HAS A MEDICAL HISTORY OF: HTN COLON CANCER ADDITIONAL INFORMATION YAMILE TRIPLETT [id number] 1945 DOES PATIENT HAVE A HISTORY OF CANCER? YES? COMPLETE ALL QUESTIONS.: YES SURGICAL HISTORY THIS INFORMATION WAS OBTAINED FROM THE CHART, PATIENT. PATIENT HAS A SURGICAL HISTORY OF: H/O UMBILICAL HERNIA REPAIR- HEMICOLECTOMY- OBJECTIVE VITALS HEIGHT/LENGTH: 72 IN (182.88 CM), WEIGHT: 204.7 LBS (93.05 KGS), BMI: 27.8, TEMPERATURE: 98 ?F (36.67 ?C), PULSE: 91 BPM, RESPIRATORY RATE: 16 BREATHS/MIN, BLOOD PRESSURE: 138/83 MMHG, PULSE OXIMETRY: 95 %. PHYSICAL EXAM CONSTITUTIONAL: VITAL SIGNS REVIEWED AND NOTED. WELL DEVELOPED, WELL NOURISHED, AND IN NO ACUTE DISTRESS. ALERT AND ORIENTED X3. RESPIRATORY: EVEN RESPIRATIONS WITHOUT USE OF ACCESSORY MUSCLES. NO INTERCOASTAL RETRACTIONS NOTED. EVEN AND NON LABORED RESPIRATION. INTEGUMENTARY (HAIR, SKIN): SEE WOUND ASSESSMENT. PERIWOUND RASH. NEUROLOGICAL: SENSATION: SYMMETRIC FUNCTION BY INFORMAL OBSERVATION. PSYCHIATRIC: ORIENTATION TO TIME, PLACE AND PERSON: NORMAL AFFECT WITH NORMAL THOUGHT PATTERN. ADDITIONAL INFORMATION THE PATIENT'S POTENTIAL TO HEAL IS: GOOD. WOUND ASSESSMENT(S) WOUND #1 ABDOMEN - MIDLINE IS AN ACUTE FULL THICKNESS SURGICAL WOUND ACQUIRED ON 09/26/2024 AND HAS RECEIVED A STATUS OF NOT HEALED. INITIAL WOUND ENCOUNTER MEASUREMENTS ARE 3.2CM LENGTH X 0.1CM WIDTH X 0.1 CM DEPTH, WITH AN AREA OF 0.32 SQ CM AND A VOLUME OF 0.032 CUBIC CM. ADIPOSE IS EXPOSED. HYPERGRANULATION WAS NOTED. NO TUNNELING HAS BEEN NOTED. NO SINUS TRACT HAS BEEN NOTED. NO UNDERMINING HAS BEEN NOTED. THERE IS A MODERATE AMOUNT OF SEROSANGUINEOUS DRAINAGE NOTED WHICH HAS NO ODOR. THE PATIENT REPORTS A WOUND PAIN OF LEVEL 0/10. THE WOUND MARGIN IS ATTACHED WOUND BED HAS YES, BRIGHT RED, PINK, FIRM, GRANULATION, YES SLOUGH, NO ESCHAR, YES EPITHELIALIZATION. THE PERIWOUND SKIN EXHIBITED ERYTHEMA. THE PERIWOUND SKIN DID NOT EXHIBIT BRAWNY INDURATION, EDEMA, EXCORIATION, INDURATION, CALLUS, CREPITUS, FLUCTUANCE, RASH, MACERATION, ATROPHIE NATY, CYANOSIS, ECCHYMOSIS, HEMOSIDEROSIS, PALLOR AND RUBOR. THE PERIWOUND SKIN WAS DRY/SCALY. THE PERIWOUND SKIN WAS NOT FRIABLE AND MOIST. THE TEMPERATURE OF THE PERIWOUND SKIN IS WNL. PERIWOUND SKIN DOES NOT EXHIBIT SIGNS OR SYMPTOMS OF INFECTION. LOCAL PULSE IS N/A. ASSESSMENT ACTIVE PROBLEMS ICD-10 (ENCOUNTER DIAGNOSIS) S31.109D - UNSPECIFIED OPEN WOUND OF ABDOMINAL WALL, UNSPECIFIED QUADRANT YAMILE TRIPLETT [id number] 1945 WITHOUT PENETRATION INTO PERITONEAL CAVITY, SUBSEQUENT ENCOUNTER (ENCOUNTER DIAGNOSIS) B35.9 - DERMATOPHYTOSIS, UNSPECIFIED GENERAL NOTES SURGICAL WOUND ABDOMEN MUCH IMPROVED, INCREASED HYPER GRANULAR TISSUE, PERIWOUND FUNGAL RASH THE FOLLOWING FACTORS HAVE BEEN IDENTIFIED THAT MAY AFFECT WOUND HEALING: DEVITALIZED TISSUE BIOFILM RECENT SURGERY CANCER GOALS: REMOVE DEVITALIZED TISSUE REMOVE AND PREVENT BIOFILM PREVENT INFECTION WOUND CLOSURE PLAN: SILVER NITRATE APPLIED TO HYPER GRANULAR TISSUE, SWITCH TO [id number] DRESSING CHANGES WITH HYDROFERA BLUE AND APPLY LOTRISONE TO PERIWOUND SKIN, CONTINUE PROTEIN SUPPLEMENTATION, FOLLOW UP IN 1 WEEK FOR A RECHECK. KEEP DRESSING DRY. PROCEDURES WOUND #1 WOUND #1 (SURGICAL WOUND) IS LOCATED ON THE ABDOMEN - MIDLINE. A CHEMICAL CAUTERIZATION PROCEDURE WAS PERFORMED BY LEONARD MACHUCA MD. PAIN CONTROL WAS ACHIEVED USING EMLA LIDOCAINE/PRILOCAINE 2.5%/2.5%. THE PROCEDURE WAS TOLERATED WELL WITH A PAIN LEVEL OF 0 THROUGHOUT AND A PAIN LEVEL OF 0 FOLLOWING THE PROCEDURE. GENERAL NOTES MIDLINE ABDOMEN. PLAN WOUND ORDERS: WOUND #1 ABDOMEN - MIDLINE ANESTHETIC TOPICAL XYLOCAINE TO WOUND BED HYGIENE MAY SHOWER WITH WOUND PROTECTED, USING A CAST PROTECTOR OR PLASTIC BAG AND TAPE CLEANSER CLEANSE WOUND WITH NORMAL SALINE TOPICAL TREATMENTS ANTIBIOTIC/ANTIMICROBIAL OINTMENT/CREAM - LOTRISONE TO ERNESTO-WOUND REDNESS. DRESSINGS PRIMARY DRESSING - HYDROFERA BLUE READY TRANSFER FOAM TO WOUND BASE, THIS TYPE OF HYDROFERA BLUE DOES NOT NEED TO BE MOISTENED. COVER AND SECURE WITH - BORDERED FOAM. CHANGE DRESSING - EVERY OTHER DAY PHYSICIAN REVIEW: REVIEWED AND EVALUATED LABS. DISCUSSED THE PLAN OF CARE @ BEDSIDE WITH - THE PATIENT AND REVIEWED HOSPITAL RECORDS. YAMILE TRIPLETT [id number] 1945 I, THE PHYSICIAN, HAVE REVIEWED THE ORDERS SCRIBED BY THE CENTER RN'S AND AGREE. ADDITIONAL ORDERS: DIETARY INCREASED PROTEIN OTHER INSTRUCTIONS: - SIGNATURE HOME HEALTH: PLEASE SEE PATIENT ON THURSDAY AND THURSDAY NEXT WEEK. PT TO RETURN TO CLINIC ON THURSDAY. FOLLOW-UP APPOINTMENTS RETURN APPOINTMENT - ONE WEEK OTHER INFORMATION: IF YOU DEVELOP FEVER, CHILLS, INCREASED PAIN, DRAINAGE, REDNESS OR SWELLING PLEASE CALL OUR OFFICE. IF AFTER HOURS, RESPOND TO THE ER. SHOULD YOU EXPERIENCE ANY SIGNIFICANT CHANGES IN YOUR WOUND(S) OR HAVE ANY QUESTIONS REGARDING YOUR HOME CARE INSTRUCTIONS PLEASE CONTACT THE WOUND CENTER @ [phone]. IF AFTER HOURS, CONTACT YOUR PRIMARY CARE PHYSICIAN OR GO TO THE HOSPITAL EMERGENCY ROOM. SCRIBING ATTESTATION I ATTEST, THE NURSE, THAT I SCRIBED THESE ORDERS FOR THE PHYSICIAN. MEDICATIONS PRESCRIBED: CLOTRIMAZOLE-BETAMETHASONE - TOPICAL 1 %-0.05 % CREAM WITH EACH DRESSING CHANGE FOR 1 WEEK STARTING 10/27/2024 PLAN OF CARE: 01. ENSURE/ESTABLISH OPTIMAL BLOOD FLOW : - REVIEWED, NOT APPLICABLE 02. ASSESS FOR/TREAT INFECTION : - EVALUATE FOR SIGNS AND SYMPTOMS OF INFECTION AND DOCUMENT FINDINGS. STATUS: CONTINUED DATE: 10/18/2024 03. DEBRIDE WEEKLY OR MORE OFTEN PRN : - EVALUATE PATIENT IN CENTER WEEKLY TO ASSESS WOUND BED AND MARGINS FOR NEED FOR DEBRIDEMENT. STATUS: CONTINUED DATE: 10/18/2024 04. OPTIMIZE GLUCOSE CONTROL AND NUTRITION : - REVIEWED, NOT APPLICABLE 05. OFFLOADING PLAN : - REVIEWED, NOT APPLICABLE 06. OPTIMIZE HOST FACTORS: - ASSESS AND REVIEW PATIENT HISTORY FOR WOUND ETIOLOGY, CO-MORBID CONDITIONS, MEDICATION REGIME, AND SMOKING HISTORY. STATUS: CONTINUED DATE: 10/18/2024 07. DRESSING SELECTION : - EVALUATE FOR DRESSING-RELATED FACTORS, SUCH AVAILABILITY, WEAR TIME, ADAPTABILITY AND USE TO BETTER OPTIMIZE WOUND HEALING AND PATIENT COMPLIANCE. STATUS: CONTINUED DATE: 10/18/2024 08. ADVANCED MODALITIES : - REVIEWED, NOT APPLICABLE STATUS: INITIATED DATE: 10/03/2024 09. FALL PREVENTION : - COMPLETE FALL ASSESSMENT. STATUS: CONTINUED DATE: 10/18/2024 10. PAIN MANAGEMENT : - COMPLETE PAIN ASSESSMENT STATUS: CONTINUED DATE: 10/18/2024 11. MEASURABLE GOALS FOR WOUND HEALING AND/OR HYPERBARIC OXYGEN THERAPY : - WOUND CLOSURE YAMILE TRIPLETT [id number] 1945 STATUS: CONTINUED DATE: 10/18/2024 12. DURATION/FREQUENCY OF WOUND CARE VISITS : - 1X WEEKLY FOR 30 DAYS STATUS: CONTINUED DATE: 10/18/2024 ELECTRONIC SIGNATURE(S) SIGNED BY: DATE: LEONARD MACHUCA MD 11/01/2024 09:32:50 (PT) 10/27/2024 10:39:10 AM VERSION ELECTRONICALLY DATE: SIGNED BY: LEONARD MACHUCA MD 10/27/2024 15:29:57 (PT) ENTERED BY: DWAYNE LAROSE ON 11/01/2024 08:54:01 (PT) YAMILE TRIPLETT [id number] 1945
== END ==
PROVIDERS: Referring Provider Surgery; Visit Provider Surgery
DX: T81.89XA Other complications of procedures, not elsewhere classified, initial encounter (principal); L98.8 Other specified disorders of the skin and subcutaneous tissue; S31.109A Unspecified open wound of abdominal wall, unspecified quadrant without penetration into peritoneal cavity, initial encounter; L92.9 Granulomatous disorder of the skin and subcutaneous tissue, unspecified; L53.9 Erythematous condition, unspecified
CPT/HCPCS: 17250; 99213

== ENCOUNTER → 2024-11-02 14:54 | Outpatient (CLI) | payer MEDICARE, OTHER, SELFPAY ==
[2024-09-26 15:43] VITALS: BMI 29.7
== END ==
LOC: WC 14:55
PROVIDERS: Referring Provider Surgery; Visit Provider Surgery
DX: T81.89XA Other complications of procedures, not elsewhere classified, initial encounter (principal); L98.8 Other specified disorders of the skin and subcutaneous tissue; L92.9 Granulomatous disorder of the skin and subcutaneous tissue, unspecified; S31.109A Unspecified open wound of abdominal wall, unspecified quadrant without penetration into peritoneal cavity, initial encounter; L53.9 Erythematous condition, unspecified; L02.211 Cutaneous abscess of abdominal wall; Z79.2 Long term (current) use of antibiotics
CPT/HCPCS: 10060; 17250; 99213

== ENCOUNTER → 2024-11-09 15:18 | Outpatient (CLI) | payer MEDICARE, OTHER, SELFPAY ==
[2024-09-26 15:43] VITALS: BMI 29.7
== END ==
PROVIDERS: Visit Provider Surgery
DX: L02.211 Cutaneous abscess of abdominal wall (principal); L53.8 Other specified erythematous conditions; S31.109D Unspecified open wound of abdominal wall, unspecified quadrant without penetration into peritoneal cavity, subsequent encounter
CPT/HCPCS: 99212; 99213

== ENCOUNTER → 2024-11-16 13:21 | Outpatient (CLI) | payer MEDICARE, OTHER, SELFPAY ==
[2024-09-26 15:43] VITALS: BMI 29.7
== END ==
LOC: WC 13:26
PROVIDERS: Referring Provider Surgery; Visit Provider Surgery
DX: S31.101A Unspecified open wound of abdominal wall, left upper quadrant without penetration into peritoneal cavity, initial encounter (principal); L02.211 Cutaneous abscess of abdominal wall; L53.8 Other specified erythematous conditions
CPT/HCPCS: 99213

== ENCOUNTER → 2024-11-21 15:30 | Outpatient (CLI) | payer MEDICARE, OTHER, SELFPAY ==
[2024-09-26 15:43] VITALS: BMI 29.7
== END ==
PROVIDERS: Referring Provider Surgery; Visit Provider Surgery
DX: L02.211 Cutaneous abscess of abdominal wall (principal); S31.101D Unspecified open wound of abdominal wall, left upper quadrant without penetration into peritoneal cavity, subsequent encounter; L53.8 Other specified erythematous conditions
CPT/HCPCS: 99212; 99213

== ENCOUNTER 2024-11-30 13:48 | Day surgery (SDC) | payer MEDICARE, OTHER, SELFPAY ==
[2024-09-26 15:43] VITALS: BMI 29.7
[2024-11-24 12:15] VITALS: BMI 26.7
--- NOTE | 2024-11-30 | DI.RAD.S_ITS ---
PROCEDURE: XR CHEST 1V INDICATIONS: PORT A CATH PLACEMENT TECHNIQUE: One view of the chest was acquired. COMPARISON: [facility], , XR CHEST 1V, 11/30/2024, 16:27. FINDINGS: Right-sided port with the catheter tip in the region of the middle 3rd of the SVC. IMPRESSION: Intraoperative guidance. Right-sided port. Dictated by: Prabhu Simons M.D. on 11/30/2024 at 18:06 Approved by: Prabhu Simons M.D. on 11/30/2024 at 18:06
--- NOTE | 2024-11-30 | DI.RAD.S_ITS ---
PROCEDURE: XR CHEST 1V INDICATIONS: POST OP PORT A CATH TECHNIQUE: One view of the chest was acquired. COMPARISON: [facility], CT, CT CHEST WITHOUT CONTRAST, 11/01/2024, 15:25. [facility], CR, XR CHEST 1V, 11/30/2024, 16:09. FINDINGS: Surgical changes and devices: Right-sided port with the catheter tip in the region of the middle 3rd of the SVC. Lungs and pleura: Lungs are clear. No pleural effusions or pneumothorax. Mediastinum: Mediastinal contours appear normal. Heart size is normal. Bones and chest wall: No suspicious bony lesions. Overlying soft tissues appear unremarkable. IMPRESSION: Right-sided port with the catheter tip in the region of the middle 3rd of the SVC. No acute cardiopulmonary abnormality. Dictated by: Prabhu Simons M.D. on 11/30/2024 at 18:07 Approved by: Prabhu Simons M.D. on 11/30/2024 at 18:08
[2024-11-30 14:11] VITALS: BP 149/90; PULSE 91; RESP 18; TEMP 36.4; O2SAT 97; BMI 26.7
--- NOTE | 2024-11-30 15:18 | PM.PREOP ---
Pre-operative Note Interval Note History & Physical reviewed/Exam performed by Physician: Yes Changes to H&P: No
[2024-11-30] MEDS: CEFAZOLIN 2 GM/100 ML PREMIX 100 ML IV (15:55)
[2024-11-30] MEDS: HEPARIN 5,000 UNIT/ML VIAL 5000 UNIT IV (16:13)
[2024-11-30] MEDS: BUPIVACAINE 0.25% W/ EPI 30 ML VIAL INJ (16:14)
[2024-11-30] MEDS: LIDOCAINE 1% 20 ML INJ (16:15)
[2024-11-30] MEDS: SODIUM CHLORIDE 0.9% 100 ML INJ (16:16)
[2024-11-30 16:28] VITALS: BP 138/84; PULSE 74; RESP 12; TEMP 36.5; O2SAT 94
--- NOTE | 2024-11-30 16:33 | PM.OP.1 ---
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 Ultrasound-guided placement needle right internal jugular vein 2. Right internal jugular vein tunneled subcutaneous port and catheter placement 3. Fluoroscopic guidance and supervision of port placement Same procedure as scheduled: Yes Indications: Requiring chemotherapy Surgeon: Munir Syde Click Yes if Unassisted: Yes Anesthesia Type: MAC +/- Operative Notes Findings: Tip of the catheter at the atriocaval junction; proximally 21 cm from the port Closure Type: primary Specimen(s): none sent Applied: catheter (Bard port) Estimated Blood Loss (mL): 5 Procedure in detail: Patient was brought to the operating room suite. Mac was induced. Time-out performed. Neck was prepped and draped in usual fashion as well as the right chest wall. Ultrasound was used to identify a patent and compressible right internal jugular vein. Total of 20 mL of 1% lidocaine and 0.5% Marcaine with epinephrine was used to infiltrate the right IJ skin and a tunnel to the right chest wall. The heel was introduced under ultrasound guidance into the right inferior internal jugular vein with prompt return of nonpulsatile blood. Wire was passed. Fluoroscopy confirmed the wire in the atriocaval junction. An 11 blade was used to open the area around the wire and a tunneler was passed from a pocket in the right chest wall. The right chest wall pocket was developed with Bovie electrocautery. The port and catheter were tunneled to the right internal jugular vein. Fluoroscopy was used to measure the length of the catheter which was between 20-21 cm to the atrial caval junction. An introducer and sheath was then placed over the wire in the right IJ using modified Seldinger technique. The wire was then removed and the catheter was inserted. Fluoroscopic guidance showed the tip of the catheter at the atrial caval junction without any kinking of the wire. Right neck stick site was closed with 4-0 Monocryl. The port was sutured in place with 3-0 Vicryl. The skin was closed with 4-0 Monocryl and Dermabond. Patient tolerated procedure well was transferred to PACU for stat portable chest x-ray which showed the catheter in good position and no pneumothorax. Complications: none Post-operative Condition: stable Disposition: PACU Plan for aftercare: home.
[2024-11-30 16:34] VITALS: BP 142/84; PULSE 79; RESP 12; TEMP 36.5; O2SAT 95
[2024-11-30 16:39] VITALS: BP 139/79; PULSE 75; RESP 12; TEMP 36.4; O2SAT 97
== END 2024-11-30 16:57 | disposition home or self-care (01) ==
PROVIDERS: Referring Provider Surgery; Visit Provider Surgery
PROC: (CPT 36561; principal; 2024-11-30 14:45)
DX: C18.1 Malignant neoplasm of appendix (principal); Z87.891 Personal history of nicotine dependence
CPT/HCPCS: 36561; 71045; 76000; C1788; J0690; J1644; J2704; J3010